=== PATIENT | male | born 1980 | race Caucasian/White ===

== ENCOUNTER 2020-04-25 11:28 | Emergency (ER) | payer BC, SELFPAY ==
[2020-04-25 11:29] VITALS: BP 146/86; PULSE 56; RESP 16; TEMP 36.6; O2SAT 99; BMI 30.5
--- NOTE | 2020-04-25 11:53 | ED.VIS.GEN ---
History of Present Illness Informant: Patient Onset: Days - 3 days Context: Gradual Onset Timing: Continuous Quality: redness/swelling Location: right eyelid Current Severity: Moderate Maximum Severity: Moderate Worsened by: nothing Relieved by: nothing Associated Symptoms: denies Narrative: 39-year-old male who denies any significant past medical history presents to the emergency department with swelling and redness above his right eye. 2 days ago the patient states he had a small pimple just underneath his eyebrow on the right side. He cleansed a small needle with peroxide and popped it and he states he did express purulence and blood. He states it initially improved but when he woke up this morning he had increased redness and swelling over his right upper eyelid and around his right eyebrow. He is not having any pain in his eye redness or drainage or any difficulties with his vision. He has not had a fever. He denies any other review of systems. Prior similar symptoms: No Recent Illness/Hospitalization: No <Glen Crowe - Last Filed: 04/25/20 11:53> <Eliceo Yañez - Last Filed: 04/25/20 12:41> Chief Complaint: Cellulitis Past Medical History Prior records reviewed: Yes Past Medical History: None Surgical History: no surgical history Lives: With Family Smoking Status: Former smoker Alcohol: Occasional Drugs: None <Glen Crowe - Last Filed: 04/25/20 11:53> <Eliceo Yañez - Last Filed: 04/25/20 12:41> - Allergies and Home Meds Allergies/Adverse Reactions: Allergies No Known Allergies Allergy (Verified 04/25/20 11:29) Primary Care Physician: Luis Pantoja MD [STAFF PHYSICIAN] - 2 Days for wound check Review of Systems All systems negative except as indicated General: Denies: Chills, Fever, Malaise Eyes: Denies: Visual changes - bilaterally, Blurred Vision - bilaterally, Diplopia ENT: Denies: Rhinorrhea, Sore throat Cardiovascular: Denies: Chest pain, Palpitations, Heart racing Respiratory: Denies: Dyspnea, Cough, Sputum Gastrointestinal: Denies: Abdominal pain, Nausea, Vomiting, Diarrhea Genitourinary: Denies: Dysuria, Hematuria, Frequency Musculoskeletal: Denies: Myalgias, Arthralgias, Neck pain, Back pain Skin: Reports: Abscess. Denies: Rash, Abrasions, Wounds Neurological: Denies: Headache, Weakness, Parasthesia, Numbness Allergy: Denies: Uticaria, Swelling of the mouth, Swelling of the tongue <Glen Crowe - Last Filed: 04/25/20 11:53> Physical Exam Vital Signs/Narrative: Vital Signs Temp Pulse Resp BP Pulse Ox 04/25/20 11:29 97.8 F 56 L 16 146/86 H 99 Inital Vital Signs reviewed: Yes General: Well nourished, Well developed, No Acute Distress Head: Normocephalic, Atraumatic Eyes: Perrl, EOMI, - - Patient has a dried hair follicle just underneath his right eyebrow. There is some very mild surrounding redness and some minimal swelling around his right eyebrow and his right upper eyelid. He has no conjunctival injection or drainage or abnormalities of his conjunctivo-. He does not have any swelling that extends to his forehead or anywhere else noted on his face. ENT: Moist mucous membranes, TM's clear. Negative for: Nasal congestion Neck: Supple, Nontender, No lymphadenopathy, No JVD Cardiovascular: Regular rate, Regular rhythm, No murmurs Respiratory: No distress, CTA bilaterally, Chest nontender Abdomen: Soft, Nontender, Nondistended, Normal bowel sounds, No masses <Glen Crowe - Last Filed: 04/25/20 11:53> Vital Signs/Narrative: Vital Signs Temp Pulse Resp BP Pulse Ox 04/25/20 12:15 16 04/25/20 11:29 97.8 F 56 L 16 146/86 H 99 <Eliceo Yañez - Last Filed: 04/25/20 12:41> Diagnostic/Tx/Re-eval - Medical Decision Making Patient has cellulitis over his right upper eyelid and around his right eyebrow. At this time there is no focal abscess. He has already drained the wound at home 2 days ago. He has no signs or symptoms that the infection is spread into his eye. Advised patient to continue warm compresses and we will prescribe him Bactrim. He was advised to return for worsening symptoms which we discussed. He will continue supportive care at home. He was advised to follow-up in the next 2 to 3 days with his doctor for a repeat wound check. <Glen Crowe - Last Filed: 04/25/20 11:53> - Medical Decision Making Seen and evaluated independently and in conjunction with physician lead recreation assistant. Agree with notes above unless documented otherwise. Agree with no fluctuance or abscess, will place patient on antibiotics and advised to return if he develops an abscess prior to the antibiotics helping it. <Eliceo Yañez - Last Filed: 04/25/20 12:41> ED Disposition <Glen Crowe - Last Filed: 04/25/20 11:53> <Eliceo Yañez - Last Filed: 04/25/20 12:41> - Plan for ED Patient: Disposition: Home or Assisted Living Diagnosis: Cellulitis of right upper eyelid Instructions: Cellulitis Prescriptions: Smz/Tmp Ds [Bactrim Ds] 1 tab PO BID #14 tab Prescription Printed Referrals: Luis Pantoja MD [STAFF PHYSICIAN] - 2 Days for wound check
[2020-04-25 12:15] VITALS: RESP 16
--- NOTE | 2020-04-25 12:16 | ED.RN ---
REVIEWED D/C INSTRUCTIONS, FOLLOW UP CARE, PRESCRIPTION, AND S/S THAT WOULD WARRANT A RETURN TO THE ED WITH PT. PT VERBALIZED AN UNDERSTANDING AND DENIES FURTHER QUESTIONS FOR THIS RN. PT SKIN P/W/D, RESP EVEN AND UNLABORED, PT A&O X 3, NO DISTRESS NOTED. PT AMBULATED OUT OF ED, GAIT STEADY.
== END 2020-04-25 12:17 | disposition home or self-care (01) ==
LOC: ED 12:12
PROVIDERS: Emergency Provider Physician Assistant Medical
DX: H00.031 Abscess of right upper eyelid (principal); Z87.891 Personal history of nicotine dependence
CPT/HCPCS: 99282

== ENCOUNTER → 2021-01-11 | Outpatient (CLI) | payer BC, SELFPAY ==
[2021-01-11 07:18] VITALS: BMI 28.6
--- NOTE | 2021-01-11 07:30 | ASPS_PTH ---
PATIENT: JORI HIGGINBOTHAM LOC: [facility] U#:[id number] AGE/SX: 40/M ROOM: RE01/11/[address]: Dr. Max Marx MD : 1980 BED: DIS: 01/11/2021 SPEC #: [id number] RECD: 01/11/21 08:41 STATUS: SRAVANTHI MOHSEN #: [id number] KEVIN: 01/11/21 07:[address]: Max Marx DEPT: CYTOLOGY RECD BY: Carmen Caro ENTERED: 01/11/21 10:22 SP TYPE: ASPIRATION OTHR DR: No Primary Care Phys Tissues: A - Thyroid gland, NOS B - Thyroid gland, NOS Procedures: Special Stain Group II Cytology Other HEADER OPERATION: Left thyroid FNA x2 PRE-OP DIAGNOSIS: Multiple thyroid nodules TISSUE SUBMITTED: A - Left inferior thyroid slides x6, B - Left mid thyroid slides x8 DIAGNOSIS CYTOLOGY A. Fine needle aspiration, left inferior thyroid nodule (smears): Adequate for evaluation. Negative, consistent with benign follicular nodule. Chronic inflammation. B. Fine needle aspiration, left mid thyroid nodule (smears): Adequate for evaluation. Negative, consistent with benign follicular nodule. AM:panda 01/12/2021 CYTOLOGY STUDY Slides are reviewed. CYTOLOGY GROSS A - Received are six smears labeled with the patient's name and designated per the requisition as left inferior thyroid. Submitted for staining. B - Received are eight smears labeled with the patient's name and designated per the requisition as left mid thyroid. Submitted for staining. / panda 01/11/21 TC:5 CPT: 14702 x2
== END | disposition home or self-care (01) ==
LOC: LABSPEC 08:47
PROVIDERS: Referring Provider Surgery; Visit Provider Surgery
DX: E04.2 Nontoxic multinodular goiter (principal)
CPT/HCPCS: 88161; 88313

== ENCOUNTER 2021-12-29 09:41 | Outpatient (CLI) | payer BC, SELFPAY ==
--- NOTE | 2021-12-29 09:46 | US_ITS ---
STUDY: THYROID ULTRASOUND REASON FOR EXAM: Male, 41 years old. Multinodular goiter. TECHNIQUE: Ultrasound evaluation of the thyroid was performed with real-time and static vo-scale imaging. COMPARISON: None. FINDINGS: RIGHT LOBE: The right lobe of the thyroid gland is enlarged and measures 6.7 cm x 2.6 cm x 1.6 cm. There is a heterogeneous echotexture. Multiple small cystic nodules are seen. The largest measures 4 mm x 4 mm x 2 mm. This is in the lower portion of the lobe. LEFT LOBE: The left lobe of the thyroid gland is enlarged and measures 6.6 cm x 2.7 cm x 1.9 cm. There is a heterogeneous echotexture. There is a dominant 2.2 cm x 1.5 cm x 1.3 cm complex nodule in the lower pole with increased vascularity. A similar appearing nodular density measuring 1.7 cm by 1.6 cm x 1.4 cm seen in the midpole. TIRADS 4 Biopsy is recommended for further evaluation. ISTHMUS: The isthmus measures 3.5 mm. The regional lymph nodes are normal. US/Thyroid IMPRESSION: Heterogeneous enlargement of both lobes of the thyroid gland as described. There are 2 dominant complex masses in the left lobe of the thyroid gland. Biopsy recommended. Electronically Signed: Trent Shelton MD at 13:01 EST ,
== END 2021-12-29 23:59 | disposition short-term general hospital (02) ==
PROVIDERS: Referring Provider Surgery; Visit Provider Surgery
DX: E04.2 Nontoxic multinodular goiter (principal)
CPT/HCPCS: 76536

== ENCOUNTER 2022-02-09 05:54 | Day surgery (SDC) | payer BC, SELFPAY ==
[2022-02-03 10:45] LABS: Hematocrit 43.9 % (40-54); Mean Corp Hgb Conc 34.2 g/dL (32-36); Mean Corpuscular Hgb 29.8 pg (27.0-32.0); Mean Corpuscular Volume 87.3 fL (80-94); Mean Platelet Vol. 10.6 fl (6.2-12.0); Platelet Count 181 K/mm3 (150-450); RBC Distribution Width CV 12.8 % (11.6-14.6); RBC Distribution Width SD 40.6 fl (35.1-43.9); Red Blood Count 5.03 M/mm3 (4.6-6.2); White Blood Count 6.2 K/mm3 (4.4-11.0)
[2022-02-03 11:19] LABS: Anion Gap 2 (5-15); BUN 19 mg/dL (7-18); BUN/Creat Ratio 17.1 RATIO (10-20); Calcium,Total 9.3 mg/dL (8.5-10.1); Chloride 105 mmol/L (98-107); Creatinine, Serum 1.11 mg/dL (0.70-1.30); EST Glomerular Filtration Rate 78 mL/min (>60); Est Glom Filt Rate - Afr Amer 94 mL/min (>60); Glucose 121 mg/dL (74-106); Phosphorus 2.3 mg/dL (2.5-4.9); Potassium 4.1 mmol/L (3.5-5.1); Sodium Level 139 mmol/L (136-145)
[2022-02-09] VITALS (12 sets, daily range): BP systolic 124–134; BP diastolic 69–97; PULSE 48–82; RESP 14–16; TEMP 36.2–37.2; O2SAT 93–98; BMI 30.1
--- NOTE | 2022-02-09 06:03 | PCM.HP.BLA ---
History and Physical Date of Admission: 02/09/22 Intake Visit Reasons: update h&p total thyroid 02/09 Chief Complaint: Update H&P Total Thyroid 02/09 RC Optometric Assistant Required: No Is patient in pain?: No Allergies No Known Allergies Allergy (Verified 02/03/22 09:06) Medications NK 01/11/21 [History Confirmed 02/03/22] PFSH Medical History Arthritis Back pain Foot pain Loose, teeth Multinodular thyroid Multiple thyroid nodules Surgical History History of colonoscopy (~2015) History of laminectomy Family History Brother Cancer thyroid Father Hypertension Grandmother Cancer thyroid Colon cancer Social History Smoking Status: Never smoker HPI HPI HPI: JORI HIGGINBOTHAM, is a 41 M who presents to the office today for an update history and physical for an upcoming elective total thyroidectomy. Patient denies any recent hospitalizations or illnesses. Patient denies cardiac and pulmonary diseases. He denies side effects or complications with anesthesia. He is not currently on any blood thinners. Patient's previous history per Dr. Marx: JORI HIGGINBOTHAM, is a 41 M who presents to the office today for surgical follow-up of thyroid disease. Please had a chance to meet this gentleman on January 11, 2021. He had multiple thyroid nodules so we performed a ultrasound-guided fine needle aspiration of a left mid and left inferior thyroid nodule. Pathology demonstrated benign follicular nodule for each of them. An updated thyroid ultrasound was obtained on December 29, 2021 as noted below. The right lobe is enlarged at 6.7 x 2.6 x 1.6 cm with the largest cystic nodule of many being 4 x 4 x 2 mm. The left lobe measures 6.6 x 2.7 x 1.9 cm. In the lower pole on the left there is a 2.2 x 1.5 x 1.3 cm complex nodule. In the midpole there is a 1.7 x 1.6 x 1.4 cm nodule. TI-RADS category 4 biopsy recommended. It is of note as just commented upon above it is exactly these nodules that were biopsied a year ago. Previously [facility] ultrasound of January 07, 2021 demonstrated the left lower pole nodule to be 1.9 x 1.4 x 1.4 cm and the left midpole nodule to be 2 x 1.7 x 1.3 cm. As noted above both of these nodules are currently measuring slightly smaller. It is of note that the patient presents today complaining of new symptoms. Is complaining that he is having some intermittent difficulty swallowing. That he can palpate the left-sided nodules more. He claims that the thyroid is somewhat tender. There is obviously ongoing concern as family history reveals a brother with thyroid cancer a maternal grandmother with thyroid cancer and an aunt with thyroid cancer. He has not experienced Covid-19 yet. He has not been vaccinated. He does do roadwork construction work. Currently there is a little in his activity. December 29, 2021 STUDY: THYROID ULTRASOUND REASON FOR EXAM: Male, 41 years old. Multinodular goiter. TECHNIQUE: Ultrasound evaluation of the thyroid was performed with real-time and static vo-scale imaging. COMPARISON: None. FINDINGS: RIGHT LOBE: The right lobe of the thyroid gland is enlarged and measures 6.7 cm x 2.6 cm x 1.6 cm. There is a heterogeneous echotexture. Multiple small cystic nodules are seen. The largest measures 4 mm x 4 mm x 2 mm. This is in the lower portion of the lobe. LEFT LOBE: The left lobe of the thyroid gland is enlarged and measures 6.6 cm x 2.7 cm x 1.9 cm. There is a heterogeneous echotexture. There is a dominant 2.2 cm x 1.5 cm x 1.3 cm complex nodule in the lower pole with increased vascularity. A similar appearing nodular density measuring 1.7 cm by 1.6 cm x 1.4 cm seen in the midpole. TIRADS 4 Biopsy is recommended for further evaluation. ISTHMUS: The isthmus measures 3.5 mm. The regional lymph nodes are normal. US/Thyroid IMPRESSION: Heterogeneous enlargement of both lobes of the thyroid gland as described. There are 2 dominant complex masses in the left lobe of the thyroid gland. Biopsy recommended. Electronically Signed: Trent Shelton MD at 13:01 EST , I have been his outside laboratory. Documented January 10, 2022 I have laboratory from November 08, 2021 performed at [facility]. White blood cell count 6.4 with a hemoglobin of 16.2 and hematocrit of 1247.6 platelet count of 155,000. Glucose 119. BUN 18. Creatinine 1.03. Albumin 4.7. Liver function tests normal. Cholesterol 213. Triglyceride 185. LDL 137. HDL 39. Both low. TSH 1.29. Free T4 1.17. T3 free 4.43. Vitamin 25 OH vitamin D 27 which is low Thyroid function tests normal ROS General General: Yes weight change and fatigue; No appetite, colon cancer, breast cancer or weakness Additional Details: 20lbs in a couple months per pt HEENT HEENT: Yes difficulty swallowing and swollen glands; No eye injury, eye surgery or hoarseness Endo Endocrine: Yes thyroid disease; No diabetes mellitus, thyroid cancer, Hair loss, heat intolerance or cold intolerance Skin Skin: No rash or changing moles Musc Musculoskeletal: Yes back problems and arthritis; No rheumatoid arthritis, gout or joint pain Cardio Cardiovascular: No murmur, pacemaker, heart disease, atrial fibrillation, high blood pressure, heart attack, heart stent, palpitations, shortness of breat with exertion or chest pain Psych Psychiatric: No depression, anxiety or hearing voices Resp Respiratory: Yes shortness of breath, No sleep apnea, No cough, No COPD, No asthma, No emphysema and No wheezing Gastro Gastrointestinal: No abdominal pain, No nausea or vomiting, Yes diarrhea, No constipation, No blood in stool, Yes acid reflux, No hemorrhoids, No ulcers, No gallbladder problem and No black,tarry stools Giovanni Hematologic: No blood thinners, No blood disorders, No bleeding, No anemia and No blood clots Neuro Neurologic: No system reviewed and no additional complaints, except as documented, No as per HPI, No abnormal gait, No abnormal hearing, No abnormal movements, No abnormal speech, No behavioral changes, No burning sensations, No confusion, No convulsions, No disequilibrium, No dizziness, No localized weakness, No frequent falls, No headache(s), No lack of coordination, No loss of vision, No memory loss, No numbness, No other visual disturbances, No radicular pain, No restless legs, No sensory deficit, No syncope, Yes tingling (Left foot following back surgery), No tremor(s), No weakness and No other Exam Const General: cooperative, healthy appearing, comfortable and no acute distress [facility] Head: normal to inspection Eyes General: appearance normal, both eyes and all related structures Neck Neck: normal visual inspection Neck mass: No Resp Effort & Inspection: normal respiratory effort Auscultation: clear to auscultation bilaterally Cardio Rate: regular rate Rhythm: regular rhythm GI Inspection: normal to inspection Palpation: soft Auscultation: normal bowel sounds Musc Cervical Spine: normal cervical lordosis Skin General: no rashes or lesions noted Neuro General: no focal motor deficits and CN's II-XI intact bilaterally Extrem General: normal to inspection Psych Appearance: grossly normal Affect: normal affect Assessment and Plan Assessment and Plan (1) Multinodular thyroid: Status: Acute Plan - Paris FAY PA-C: Dr. Marx will plan to perform a total thyroidectomy. Procedure details, risks and benefits have been reviewed. Patient has had the opportunity to ask and have questions answered. Patient verbally understands and agrees with the plan. Coding Level of Care Code No Charge Diagnoses Multinodular thyroid E04.2 Comment Update H&P 02/03/22 0660<Electronically signed by Paris FAY PA-C> I have re-examined the patient. There are no clinical changes since date of exam. Max Marx M.D., F.A.C.S. The patient is very much aware of the technique benefit risk complications and alternatives to this procedure. He is claiming that his thyroid is symptomatic and tender and causing swallowing problems. He is aware that he will require lifelong medication. He is scheduled and would like to proceed with definitive surgery. There clearly is ongoing concerns on his part regarding his strong family history of thyroid cancer. Max Marx M.D., F.A.C.S.
[2022-02-09] MEDS: Lactated Ringers 1,000 ML 15 ML IV ×2 (06:36→09:00)
--- NOTE | 2022-02-09 07:10 | PCM.DC ---
Documented by User: Dr. Max Marx MD 02/09/22 07:11 Discharge Instructions Diet Discharge Diet: Light diet - advance as tolerated (if you have questions about your diet instructions, please talk to you doctor.) Activity Discharge Activity: May Not Drive (for 3-5 days or while taking narcotic pain medicine.) May shower in (days): 1 Lifting Restrictions: 10 pounds Dressing / Incision Call your doctor if your incision/area has: Continuous Slow Oozing, Sudden Increased Bleeding, Increased Pain/ Swelling, Increased Redness and Foul Smelling Discharge Call your doctor if you observe: Fever of 101 or Higher Suture Line Care: Avoid Pulling/Pushing and Avoid Pinching/Bending Follow Up Care Please Follow Up With: Max Marx MD When: Call [phone] to make an appointment to be seen in about 10 days. Test Results: You may shower over your incision tomorrow , February 10, 2022. Remove any dressing that might still be in place. Discharge Plan Admission Primary Reason for Your Visit: Symptomatic multinodular goiter Attending Provider: Max Marx Primary Care Provider: Care Physician,Noris Primary Discharge Orders/Prescriptions Prescriptions: New levothyroxine 150 mcg Tablet 150 mcg PO DAILY@0600 Qty: 30 RF: 1 calcium carbonate 200 mg calcium (500 mg) Tablet,Chewable 1,000 mg PO TIDCM 14 Days Qty: 210 RF: 0 oxycodone 5 mg Tablet 5 mg PO Q6H PRN PRN (Reason: Pain Score 1-10/10) 3 Days Qty: 9 RF: 0 Continued ibuprofen 200 mg Capsule 200 mg PO Q6H PRN (Reason: Pain) RF: 0 Referrals / Follow Up: Care Physician,No Primary [Primary Care Provider] - Disposition Disposition (needs filled in before D/C Order can be placed): Home, Self Care Documented by User: Paris FAY PA-C 02/09/22 15:35 Discharge Plan Admission Primary Reason for Your Visit: Symptomatic multinodular goiter Attending Provider: Max Marx Primary Care Provider: Care Physician,No Primary Discharge Orders/Prescriptions Prescriptions: New levothyroxine 150 mcg Tablet 150 mcg PO DAILY@0600 Qty: 30 RF: 1 calcium carbonate 200 mg calcium (500 mg) Tablet,Chewable 1,000 mg PO TIDCM 14 Days Qty: 210 RF: 0 oxycodone 5 mg Tablet 5 mg PO Q6H PRN PRN (Reason: Pain Score 1-10/10) 3 Days Qty: 9 RF: 0 Continued ibuprofen 200 mg Capsule 200 mg PO Q6H PRN (Reason: Pain) RF: 0 Referrals / Follow Up: Care Physician,No Primary [Primary Care Provider] - Disposition Disposition (needs filled in before D/C Order can be placed): Home, Self Care
--- NOTE | 2022-02-09 07:30 | THYROID_PTH ---
PATIENT: JORI HIGGINBOTHAM LOC: [facility] U#:[id number] AGE/SX: 41/M ROOM: RE02/09/[address]: Dr. Max Marx MD : 1980 BED: DIS: 02/09/2022 SPEC #: [id number] RECD: 02/09/22 11:53 STATUS: SRAVANTHI CONNOLLY #: [id number] KEVIN: 02/09/22 07:[address]: Max Marx DEPT: SURGICAL PATHOLOGY RECD BY: Juancarlos Kinney ENTERED: 02/09/22 13:24 SP TYPE: THYROID OTHR DR: No Primary Care Phys Tissues: Thyroid gland, NOS Procedures: Surgery Specimen Level V HEADER OPERATION: Total thyroidectomy PRE-OP DIAGNOSIS: Multinodular thyroid TISSUE SUBMITTED: Thyroid (suture in anterior superior aspect of left lobe) MICROSCOPIC DIAGNOSIS Thyroid, total thyroidectomy: Colloid nodules with focal adenomatous change. One benign lymph node. AM:panda 02/11/2022 MICROSCOPIC DESCRIPTION Slides are reviewed. GROSS DESCRIPTION Received in fixative is one container labeled with the patient's name and designated thyroid. The specimen consists of a total thyroidectomy measuring 40 gm. The right lobe measures 5.3 x 3 x 2.2 cm. The left lobe measures 6.3 x 3 x 2.2 cm. The isthmus measures 2 x 1.5 x 0.8. The specimen is differentially inked as follows: right lobe - blue, left lobe - green, isthmus - red. The entire posterior portion of the thyroid is inked in black ink. Serial sections reveal multiple gelatinous nodules ranging in size from 0.5 to 2.3 cm. Animal Husbandry Professor sections are submitted in 11 cassettes as follows: 1-5 - right lobe, 6 - isthmus, 7-11 - left lobe. / AM:panda 02/10/2022 TC:5 CPT: 10760
[2022-02-09] MEDS: Bupivacaine Mpf 0.5% 30 ML VIAL (09:52)
--- NOTE | 2022-02-09 10:03 | OP.PCM_ITS ---
Problems Associated Problem List Diagnoses (1) Multinodular thyroid: Report of Operation Date of Procedure: 02/09/22 Pre-Operative Diagnosis: Symptomatic multinodular goiter Post-Operative Diagnosis: Same Surgery/Procedure Performed:: Total thyroidectomy Description of Surgical Findings:: Timeout informed consent was obtained. The patient was taken to the operating placed on the table underwent general tracheal intubation anesthesia shoulder roll was placed the neck was prepped with chlorhexidine. Clean procedure no antibiotics required. A transverse suprasternal incision was created sharp dissection carried down through the subtenons tissue consistent was incised with subsequent flaps were raised strap muscles were incised vertically patient had very thick well-developed strap muscles dissection performed directly down upon the thyroid the right lobe was addressed first it was noted to be enlarged carefully and tediously dissection performed initially inferiorly identifying the inferior lobe dissecting through the inferior parathyroid which was clearly visualized. Harmonic Scalpel dissection was used and hemoclips were needed additionally for hemostasis in the middle portion of the gland was partially elevated and I nancy attention of the superior part of the gland superior vessels identified secured with amount of scalpel and hemoclips. The gland was rotated anteriorly and the recurrent laryngeal nerve quickly identified. There is carefully protected as the gland was then dissected posteriorly. Dissection was formed off the ligament very which was quite tight not had to use scalpel dissection at that point. The nerve continuously on view. Plan was then dissected off the anterior surface of the trachea with harmonic scalpel at the pyramidal lobe was taken as well. The left lobe slightly larger seemingly than the right lobe slightly more tedious dissection was required on the left as the gland was rotated again the inferior pole was addressed in the superior pole that allowed rotation of the gland the recurrent nerve identified protected. The inferior parathyroid on the left again identified preserved superior parathyroid more difficult to visualize but felt that that was identified and can and protected as well. The gland was then dissected free. Suture was placed in the anterior superior aspect of the left lobe of the thyroid. It is of note that the dissection throughout was rather tedious due to the size of the gland and some fibrous adherence. [place] that technique however procedure proceeded on in a good fashion. The neck was irrigated. Inspection revealed hemostasis was intact. Recurrent nerves intact. Small piece of fibrillar was placed in each portion of the neck. Strap muscles were approximated midline with 3-0 Vicryl simple sutures. Platysma was approximately the same. Subdermal tissues were approximated with a deeper layer of interrupted 3-0 Vicryl and then a superficial layer of interrupted 5-0 Vicryl. The periincisional area is excised with 10 cc of 0.5% Marcaine. Dermabond was applied followed by Telfa and tape dressings. Sponge and instrument and needle counts were reported to the surgeon to be correct. Specimen total thyroid. Drains none. Blood loss minimal. Max Marx M.D., F.A.C.S. Surgeon: Max Marx Type of Anesthesia: General and Local Anesthesiologist: Nichole Moreno
[2022-02-09] MEDS: Calcium Carbonate 500 MG Tablet 1000 MG PO (12:07)
[2022-02-09] MEDS: Calcitriol 0.25 MCG Capsule PO (12:07)
[2022-02-09] MEDS: Acetaminophen 325 MG Tablet 650 MG PO (12:07)
[2022-02-09 14:40] LABS: Calcium,Total 9.2 mg/dL (8.5-10.1)
== END 2022-02-09 23:59 | disposition home or self-care (01) ==
LOC: SDC 05:55 → AC 05:55
PROVIDERS: Referring Provider Surgery; Visit Provider Surgery
PROC: (CPT 60240; principal; 2022-02-09 07:15)
DX: E04.2 Nontoxic multinodular goiter (principal)
CPT/HCPCS: 60240; 00320; 36415; 80048; 82310; 84100; 85027; 87426; 88307; C9803; J7120; J2405

== ENCOUNTER 2022-02-21 08:48 | Outpatient (CLI) | payer BC, SELFPAY ==
[2022-02-21 09:50] LABS: Calcium,Total 9.4 mg/dL (8.5-10.1)
== END 2022-02-21 23:59 | disposition home or self-care (01) ==
LOC: PAVLAB 08:49
PROVIDERS: Referring Provider Physician Assistant; Visit Provider Physician Assistant
DX: E04.2 Nontoxic multinodular goiter (principal)
CPT/HCPCS: 36415; 82310; 84443

== ENCOUNTER → 2022-03-22 | Outpatient (CLI) | payer BC, SELFPAY | END | disposition home or self-care (01) | LOC: PAVLAB 15:38 | PROVIDERS: PCP Internal Medicine; Referring Provider Physician Assistant; Visit Provider Physician Assistant | DX: E89.0 Postprocedural hypothyroidism (principal) | CPT/HCPCS: 36415; 84443 ==

== ENCOUNTER → 2022-04-16 | Outpatient (CLI) | payer BC, SELFPAY ==
[2022-04-16 09:17] LABS: Thyroid Stim Hormone (TSH) 9.13 uIU/mL (0.358-3.74)
== END | disposition home or self-care (01) ==
LOC: LAB 08:14
PROVIDERS: PCP Internal Medicine; Referring Provider Physician Assistant; Visit Provider Physician Assistant
DX: E04.2 Nontoxic multinodular goiter (principal)
CPT/HCPCS: 36415; 84443

== ENCOUNTER 2023-10-14 21:05 | Emergency (ER) | payer BC, SELFPAY ==
[2023-10-14 21:07] VITALS: TEMP 36.6
--- NOTE | 2023-10-14 21:20 | ED.VIS.LOWEX ---
HPI History of Present Illness HPI Narrative: Patient presents with right knee pain that began today. Patient states he had a recent right knee arthroscopy and meniscus surgery. Patient denies any fevers or chills. Patient states there was swelling over his patella that was worse earlier today. Patient describes his pain as sharp. Patient states nothing makes it worse and nothing makes it better. Patient denies any paresthesias or weakness. Patient denies any trauma or injury. Chief Complaint: Lower Extremity Injury Onset/Context/Timing Onset: Today Timing: Continuous Quality of Pain: Sharp Location: Right knee Worsened by: Nothing Relieved by: Nothing Associated Symptoms Associated Symptoms: Negative for Parasthesia, Weakness or Loss of Funtion PFSH PFSH Medical History Arthritis Back pain Foot pain Hypothyroidism Loose, teeth Multinodular thyroid Multiple thyroid nodules Neck pain Home Medications ibuprofen 200 mg capsule 200 mg PO Q6H PRN Pain 02/09/22 [History Last Taken 02/08/22] ibuprofen 800 mg tablet 800 mg PO Q6H PRN pain, mild 10/14/23 [History Last Taken Unknown] levothyroxine 200 mcg capsule 225 mcg PO DAILY 10/14/23 [History Last Taken Unknown] Allergy/AdvReac Type Severity Reaction Status Date / Time adhesive tape AdvReac Mild Rash Verified 10/14/23 21:10 Family History Brother Cancer thyroid Father Hypertension Grandmother Cancer thyroid Colon cancer Surgical History History of colonoscopy (~2015) History of laminectomy History of total thyroidectomy S/P knee surgery S/P total thyroidectomy Social History household members: significant other Smoking Status: Never smoker ROS ROS ED Constitutional Constitutional ED: Denies chills or fever(s) Eyes Eyes: Denies blurry vision or change in vision ENT ENT ED: Denies rhinorrhea or sore throat Cardiovascular Cardiovascular: Denies chest pain or palpitations Respiratory/Chest Respiratory/Chest: Denies cough or dyspnea Gastrointestinal Gastrointestinal: Reports nausea; Denies vomiting Genitourinary Genitourinary ED: Denies dysuria or hematuria Musculoskeletal Musculoskeletal: Reports back pain; Denies neck pain Integumentary Denies abscess or rash Neurologic Neurologic: Reports headache(s); Denies weakness Allergic/Immunologic Allergic/Immunologic ED: Denies mouth swelling or urticaria EXAM Physical Exam Const Vital Signs: 10/14/23 21:07 Temperature 98 F Temperature Source Temporal Positive well nourished and well developed General Appearance ED: well developed and NAD HEENT Reports moist mucous membranes Neck full ROM and supple Extremity Extremity Narrative: There is mild tenderness over the right knee. Incisions are healing well. There is no erythema or discharge noted. There is no joint effusion noted. There is no deformity noted. There is no pain with short arc range of motion. Range of motion was somewhat limited in complete flexion and extension secondary to pain. There is no calf tenderness noted. Pedal pulses are equal bilaterally. Sensation was intact to light touch bilaterally. Strength is 5/5 bilaterally. Neuro oriented x3, CN's II-XII intact bilaterally, moves all extremities and no sensory deficits noted Sensorium / Orientation: alert Motor Exam: strength 5/5 throughout Psych mental status grossly normal MDM MDM MDM Narrative Medical decision making narrative: Differential diagnosis includes postoperative swelling, fracture, and sprain. X-rays of the right knee will be obtained to assess for occult fracture. Radiography Diagnostic Testing: X-rays of the right knee were obtained. There are 4 views. On my independent interpretation, there is no acute fracture or dislocation noted. There is a mild effusion noted. Radiologist also interpreted the x-rays and agrees. Treatment and Re-Evaluation Narrative: Patient was advised of his findings. Case was discussed with Dr. Avery who is covering for Dr. Sapp. He recommended having patient follow-up with Dr. Sapp in the office this week. He did not recommend any antibiotics. Patient was instructed to ice and elevate the right knee. Patient was instructed to follow-up in 3 to 5 days. Patient understood and was agreeable with the plan. All questions were answered. Discharge Plan Triage Chief Complaint: Lower Extremity Injury ED Provider: Bill Pollock Dx/Rx/DC Orders Clinical Impression: Postoperative edema, Postoperative pain of right knee, Status post arthroscopic surgery of right knee Instructions: ED Knee Effusion Prescriptions: No Action ibuprofen 200 mg Capsule 200 mg PO Q6H PRN (Reason: Pain) ibuprofen 800 mg tablet 800 mg PO Q6H PRN (Reason: pain, mild) Patient Comments: TAKE 1 TABLET BY MOUTH EVERY 6 TO 8 HOURS NEEDED levothyroxine 200 mcg capsule 225 mcg PO DAILY Primary Care Provider: JUANI ALBA Referrals: Mendel Sapp DO [Med Staff - Active Staff] - 3-5 Days JUANI ALBA MD [Primary Care Provider] - Disposition Disposition: Home, Self Care
--- NOTE | 2023-10-14 21:50 | RAD_ITS ---
STUDY: X-RAY - RIGHT KNEE REASON FOR EXAM: Male, 43 years old. ARTHROSCOPIC KNEE SURGERY ON 10-10-2023. SWELLING AND PAIN NEAR SURGICAL SITE. TECHNIQUE: 4 view(s) of the knee. COMPARISON: None. FINDINGS: Normal visualized distal femur. Normal visualized proximal tibia and fibula. Normal proximal tibiofibular articulation. Normal medial femorotibial compartment. Normal lateral femorotibial compartment. Normal patellofemoral articulation. There is no demonstrated joint effusion. Soft tissue swelling of the anterior knee. RAD/Knee 4 or More Views IMPRESSION: Prepatellar soft tissue swelling. No fracture demonstrated. Electronically Signed: Jeyson Abernathy MD ([place]) at 22:09 EST Reading Location ID and State: [facility] / [place] , Service support ,
[2023-10-14 22:00] VITALS: BP 136/90; PULSE 64; RESP 14; TEMP 36.4; O2SAT 95
== END 2023-10-14 23:19 | disposition home or self-care (01) ==
PROVIDERS: Emergency Provider Emergency Medicine; PCP Internal Medicine; Visit Provider Emergency Medicine
DX: M25.561 Pain in right knee (principal); R60.9 Edema, unspecified; Z98.890 Other specified postprocedural states; E03.9 Hypothyroidism, unspecified; Z79.899 Other long term (current) drug therapy
CPT/HCPCS: 73564; 99282

== ENCOUNTER 2023-12-06 16:40 | Emergency (ER) | payer BC, SELFPAY ==
[2023-12-06 16:41] VITALS: BP 141/97; PULSE 66; RESP 14; TEMP 36.3; O2SAT 99; BMI 31.6
--- NOTE | 2023-12-06 16:44 | EKG12_ITS ---
Test Reason : CP Blood Pressure : / mmHG Vent. Rate : 063 BPM Atrial Rate : 063 BPM P-R Int : 156 ms QRS Dur : 096 ms QT Int : 390 ms P-R-T Axes : 050 072 012 degrees QTc Int : 399 ms Normal sinus rhythm Normal ECG Confirmed by JANAY JESUS, CHON ([id number]), content editor VIKI MIRANDA ([id number]) on 12/08/2023 7:13:17 AM Referred By: KIMBERLEE/WENDY Confirmed By:CHON GUSTAFSON MD
--- NOTE | 2023-12-06 16:47 | NURSING ---
NO OLD EKGS
--- NOTE | 2023-12-06 17:00 | RAD_ITS ---
STUDY: X-RAY CHEST REASON FOR EXAM: Male, 43 years old. chest pain TECHNIQUE: Single AP portable view of the chest. COMPARISON: None. FINDINGS: The lungs are clear and expanded. There is no demonstrated pleural abnormality. Normal size heart. Normal mediastinum and funmilayo. Normal visualized pulmonary arteries. Normal visualized aortic arch and descending thoracic aorta. Normal visualized thoracic spine. Normal visualized ribs, clavicles, and shoulders. There is no demonstrated abnormality of the visualized soft tissue structures of the upper abdomen. RAD/Chest 1 View (Portable) IMPRESSION: Normal x-ray examination of the chest. Electronically Signed: Isha Hawthorne MD at 17:11 [facility] ,
[2023-12-06 17:03] LABS: Absolute Lymphocyte Count 2.14 X10^3/uL (0.83-4.51); Absolute Neutrophil Count 5.3 X10^3/uL (2.0-7.7); Basophil# 0.06 X10^3/uL; Basophil% 0.7 % (0-1); Eosinophil# 0.17 X10^3/uL; Eosinophils% 1.9 % (0-5); Hematocrit 45.4 % (40-54); Hemoglobin 15.2 g/dL (13.0-16.5); Lymphocyte # 2.14 X10^3/ul (0.83-4.51); Lymphocyte % 24.3 % (19-41); Mean Corp Hgb Conc 33.5 g/dL (32-36); Mean Corpuscular Hgb 29.7 pg (27.0-32.0); Mean Corpuscular Volume 88.8 fL (80-94); Mean Platelet Vol. 10.5 fl (6.2-12.0); Monocyte# 1.05 X10^3/uL; Monocyte% 11.9 % (0-10); NRBC Flagged by Analyzer 0 % (0-5); Neutrophil # 5.32 X10^3/uL (2.7-7.7); Neutrophil % 60.6 % (47-70); Platelet Count 176 K/mm3 (150-450); RBC Distribution Width SD 45.1 fl (35.1-43.9); Red Blood Count 5.11 M/mm3 (4.6-6.2); White Blood Count 8.8 K/mm3 (4.4-11.0)
[2023-12-06 17:21] LABS: Anion Gap 4 (5-15); BUN 20 mg/dL (7-18); BUN/Creat Ratio 14.9 RATIO (10-20); Calcium,Total 9.4 mg/dL (8.5-10.1); Chloride 108 mmol/L (98-107); Creatinine, Serum 1.34 mg/dL (0.70-1.30); EST Glomerular Filtration Rate 62 mL/min (>60); Est Glom Filt Rate - Afr Amer 75 mL/min (>60); Estimated Creatinine Clearance 86.85 ml/min; Glucose 99 mg/dL (74-106); Potassium 4.3 mmol/L (3.5-5.1); Sodium Level 139 mmol/L (136-145); Troponin-I HS (w/2H Reflex) 4 pg/mL (3.0-78.0)
--- NOTE | 2023-12-06 18:32 | ED.VIS.CHEST ---
HPI History of Present Illness Chief Complaint: Chest Pain Informant: patient Onset/Context/Timing Onset: Yesterday Activity at onset: gradual Timing: Continuous Quality: Positive for Sharp and - (Twisting) Location: Substernal Worsened By: Exertion Relieved By: Nothing Associated Symptoms: Positive for Dyspnea, Lightheadedness and Palpitations; Negative for Nausea, Vomiting, Diaphoresis, Cough, Fever or Acid Reflux Narrative Narrative: Patient presents with chest pain that began yesterday. Patient states it came on gradually. Patient states it has been constant. Patient describes it as a twisting sensation and sharp at times. Patient states it is over the substernal area. Patient states it is worse with exertion. Patient admits to some shortness of breath with this. Patient also admits to some lightheadedness and palpitations. Patient states he had a recent right knee surgery. Patient is concerned over possible blood clot. [facility] Medical History Arthritis Back pain Foot pain Hypothyroidism Loose, teeth Multinodular thyroid Multiple thyroid nodules Neck pain Home Medications ibuprofen 200 mg capsule 200 mg PO Q6H PRN Pain 02/09/22 [History Last Taken 02/08/22] ibuprofen 800 mg tablet 800 mg PO Q6H PRN pain, mild 10/14/23 [History Last Taken Unknown] levothyroxine 200 mcg capsule 225 mcg PO DAILY 10/14/23 [History Last Taken Unknown] Allergy/AdvReac Type Severity Reaction Status Date / Time adhesive tape AdvReac Mild Rash Verified 12/06/23 16:41 Family History Brother Cancer thyroid Father Hypertension Grandmother Cancer thyroid Colon cancer Surgical History History of colonoscopy (~2015) History of laminectomy History of total thyroidectomy S/P knee surgery S/P total thyroidectomy Social History household members: significant other Smoking Status: Never smoker ROS ROS ED Constitutional Constitutional ED: Denies chills or fever(s) Eyes Eyes: Reports blurry vision; Denies diplopia ENT ENT ED: Denies rhinorrhea or sore throat Cardiovascular Cardiovascular: Reports chest pain and palpitations Respiratory/Chest Respiratory/Chest: Reports dyspnea; Denies cough Gastrointestinal Gastrointestinal: Denies nausea or vomiting Genitourinary Genitourinary ED: Reports urinary frequency; Denies dysuria or hematuria Musculoskeletal Musculoskeletal: Denies back pain or neck pain Integumentary Denies abscess or rash Neurologic Neurologic: Reports headache(s); Denies weakness Allergic/Immunologic Allergic/Immunologic ED: Denies mouth swelling or urticaria EXAM Physical Exam Const Vital Signs: 12/06/23 16:41 12/06/23 18:52 12/06/23 18:52 Temperature 97.3 F L Temperature Source Temporal Pulse Rate 66 66 Respiratory Rate 14 16 Blood Pressure 141/97 H 143/96 H Blood Pressure Mean 111 111 Pulse Ox 99 Oxygen Delivery Method Room Air Room Air 12/06/23 20:27 Temperature Temperature Source Pulse Rate 60 Respiratory Rate 18 Blood Pressure 139/83 H Blood Pressure Mean 101 Pulse Ox 100 Oxygen Delivery Method Positive well nourished and well developed General Appearance ED: well developed and NAD HEENT Reports moist mucous membranes Chest Wall Chest: tenderness sternum and costochondral junction Resp normal respiratory effort and clear to auscultation bilaterally Cardio regular rate and regular rhythm GI soft to palpation, non-tender and non-distended Extremity normal to inspection General Extremety ED: Negative for edema or tenderness General Extremity: Negative for edema Psych mental status grossly normal Heart Score History: Slightly/Non-Suspicious ECG: Normal Age: </= 45 years Risk Factors: No Risk Factors Troponin: </= Normal Limit Score: 0 MDM MDM MDM Narrative Medical decision making narrative: Differential diagnosis includes cardiac dysrhythmia, cardiac ischemia, pulmonary embolism, pneumonia, pneumothorax, and musculoskeletal pain. EKG will be obtained to assess for cardiac dysrhythmia and cardiac ischemia. Chest x-ray will be obtained to assess for pneumonia and pneumothorax. CBC will be obtained to assess for leukocytosis and anemia. Basic metabolic profile will be obtained to assess for electrolyte abnormality and renal function. High-sensitivity troponin will be obtained to assess for cardiac ischemia. 2-hour repeat high-sensitivity troponin will be obtained to assess for ongoing cardiac ischemia. D-dimer will be obtained to assess for pulmonary embolism and DVT. Lab Data Attestation: I reviewed the patient's lab results. Lab results narrative: CBC was reviewed and was within normal limits. Basic metabolic profile was reviewed and was essentially within normal limits. It was slightly elevated at 1.34. Initial high-sensitivity troponin was reviewed and was normal at 4. D-dimer was reviewed and was normal at 0.28. 2-hour repeat high-sensitivity troponin was reviewed and was normal at 4. Labs: Laboratory Results - last 24 hr 12/06/23 12/06/23 16:50 19:00 WBC 8.8 RBC 5.11 Hgb 15.2 Hct 45.4 MCV 88.8 MCH 29.7 MCHC 33.5 RDW Std Deviation 45.1 H RDW Coeff of Fritz 14.0 Plt Count 176 MPV 10.5 Immature Gran % (Auto) 0.600 Neut % (Auto) 60.6 Lymph % (Auto) 24.3 [place] % (Auto) 11.9 H Eos % (Auto) 1.9 Baso % (Auto) 0.7 Absolute Neuts (auto) 5.3 Absolute Lymphs (auto) 2.14 Nucleated RBC % 0 D-Dimer Quant (PE/DVT) 0.28 Sodium 139 Potassium 4.3 Chloride 108 H Carbon Dioxide 27.0 Anion Gap 4 L BUN 20 H Creatinine 1.34 H Estim Creat Clear Calc 86.85 Est GFR (MDRD) Af Amer 75 Est GFR (MDRD) Non-Af 62 BUN/Creatinine Ratio 14.9 Glucose 99 Calcium 9.4 Troponin I High Sens 4 4 Radiography Chest X-Ray - ED: 1 View, Read by ED Physician, Read by Radiologist and No Acute Disease Diagnostic Testing: Clinical Impression(s) from Imaging Studies Chest X-Ray 12/06/23 17:00 IMPRESSION: Normal x-ray examination of the chest. Electronically Signed: Isha Hawthorne MD at 17:11 EST , Portable 1 view chest x-ray was obtained. On my independent interpretation, lung monte are clear. There is normal cardiac silhouette. Bony thorax is normal. There is no acute process noted. Radiologist also interpreted the x-ray and agrees. EKG Initial EKG: Attestation: I personally reviewed and interpreted this EKG as follows: Interpretation: Sinus Rhythm (63) and No Acute Injury Pattern Comments: EKG was obtained. On my independent interpretation, it showed a normal sinus rhythm with a rate of 63. CT interval, QRS interval, and QTc intervals were all normal. [place] was normal. There are no acute ST or T wave changes. Prior EKG tracings: not available for review Prior: No Prior Treatment and Re-Evaluation :: Patient was given IV fluids. Patient was advised of his findings. Patient has a HEART score of 0. Patient was advised that this is low risk for acute cardiac event. Patient was instructed to follow-up with his primary care physician in 5 to 7 days for further evaluation. Patient understood and was agreeable with the plan. All questions were answered. Discharge Plan Triage Chief Complaint: Chest Pain ED Provider: Bill Pollock Dx/Rx/DC Orders Clinical Impression: Chest pain, S/P total thyroidectomy Instructions: ED Chest Pain, Uncertain Cause Prescriptions: No Action ibuprofen 200 mg Capsule 200 mg PO Q6H PRN (Reason: Pain) ibuprofen 800 mg tablet 800 mg PO Q6H PRN (Reason: pain, mild) Patient Comments: TAKE 1 TABLET BY MOUTH EVERY 6 TO 8 HOURS NEEDED levothyroxine 200 mcg capsule 225 mcg PO DAILY Primary Care Provider: JUANI ALBA Referrals: JUANI ALBA MD [Primary Care Provider] - 5-7 Days Disposition Disposition: Home, Self Care Discharge Date/Time: 12/06/23 20:30
[2023-12-06 18:52] VITALS: BP 143/96; PULSE 66; RESP 16
[2023-12-06 18:54] LABS: D-Dimer Quantitative (DVT/PE) 0.28 FEU/ug/m (0.27-0.49)
[2023-12-06 19:00] LABS: Reflex Troponin-HS? (from REC) Y
[2023-12-06] MEDS: 0.9% Normal Saline (1000mL) 1,000 ML 1000 ML IV (19:07)
--- OUTSIDE RECORDS SUMMARY | 2023-12-06 19:09 | XMS RPT_ITS | CCD ---
Author Name Unknown Address [id number] [place] [address] Organization [facility] Care Team Providers Care [employer] Supervisor Name Role Phone ABHINAV HERNANDEZ Unavailable Unavailable NONE, DOCTOR Unavailable Unavailable ED, Doctor Unavailable Unavailable ED, Doctor Unavailable Unavailable Lupe Johnson Unavailable Unavailable Candi Rodriguez MD Primary Care Provider Candi Rodriguez MD Primary Care Provider SYSTEM, PROVIDER NOT IN Primary Care Unavaila VIDA Irizarry Attending Unavailable PRANAV BUI Referring Unavailable PRANAV BUI Attending Unavailable CANDI RODRIGUEZ MD Primary Care Physician CANDI RODRIGUEZ MD Primary Care Unavailable GIA JESUS, DR MART Maneul Attending Unavailab Candi Cisneros MD Primary Care Provider PROVIDER, UNKNOWN Primary Care Unavailable PROVIDER, UNKNOWN Primary Care Unavailable CANDI RODRIGUEZ Primary Care Unavailable Allergies Allergy Classification Reported Allergen(s) Allergy Type Date of Onset Reaction(s) Facility (1 source) Adhesive agent Drug Allergy 09-01-2023 [facility] Medications Current Medications Medication Drug Class(es) Dates Sig (Normalized) Sig (Original) ibuprofen 200 mg oral tablet (1 source) Nonsteroidal Anti-inflammatory Drug Start: 5 take 1 dose by mouth every six hours Advil Dose : 200 mg =, Oral, q6hr, 0 Refill(s) Start Date: 08/08/15 Status: Ordered methylPREDNISolone 4 mg oral tablet (1 source) Corticosteroid Start: 3 End: 3 take 4 mg by mouth once daily methylPREDNISolone (MEDROL DOSE-PACK) 4 mg Dose-Pack Take 4 mg by mouth once daily. 0 08/30/2023 09/05/2023 Active Completed/Discontinued Medications Medication Drug Class(es) Dates Sig (Normalized) Sig (Original) fluticasone propionate 0.05 mg/actuat metered dose nasal spray (4 sources) Corticosteroid Start: 06-03-2020 take 2 spray(s) nasal route once daily fluticasone (FLONASE) 50 mcg/actuation nasal spray Indications: Nasal drainage , Cough Use 2 Sprays in each nostril once daily. 1 Bottle 0 06/03/2020 Active Problems Active Problems Problem Classification Problem Date Documented Da te Episodic/Chronic Abdominal pain (2 sources) Left upper quadrant pain; Translations: [Left upper quadrant pain] Onset: 10-11-2022 Episodic Inflammation; infection of eye (except that caused by tuberculosis or sexually transmitteddisease) (1 source) Acute conjunctivitis of left eye; Translations: [Unspecified acute conjunctivitis, left eye] Episodic Nausea and vomiting (2 sources) Nausea with vomiting, unspecified; Translations: [Nausea with vomiting, unspecified] Onset: 10-11-2022 Episodic Other endocrine disorders (1 source) Testicular hypofunction; 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 Other gastrointestinal disorders (2 sources) Diarrhea, unspecified; Translations: [Diarrhea, unspecified] Onset: 10-11-2022 Episodic Other upper respiratory infections (3 sources) Viral upper respiratory tract infection; Translations: [Acute upper respiratory infection, unspecified] Episodic Unclassified (1 source) Entire carpal canal (body structure) 08-08-2015 Viral infection (2 sources) COVID-19; Translations: [COVID-19] Onset: 10-23-2022 Past or Other Problems Problem Classification Problem Date Documented Da te Episodic/Chronic Malaise and fatigue (2 sources) Other fatigue; Translations: [Other fatigue] Onset: 10-26-2017 Episodic Other lower respiratory disease (2 sources) Cough; Translations: [Cough] Onset: 10-26-2017 Episodic Unclassified (2 sources) Other specified abnormal findings of blood chemistry; Translations: [Other specified abnormal findings of blood chemistry] Onset: 10-26-2017 Episodic Results Test Name Value Interpretation Reference Range Facil ity Vital Signs Date Time Vital Sign Value Performing Clinician Faci lity 09-01-2023 07:46-0400 Body temperature 98.6 [degF] Cleve Monahan MD Work Phone: [facility] 09-01-2023 07:46-0400 Body weight 99.61 kg Cleve Monahan MD Work Phone: [facility] 09-01-2023 07:46-0400 Diastolic blood pressure 91 mm[Hg] Cleve Monahan MD Work Phone: [facility] 09-01-2023 07:46-0400 Heart rate 65 /min Cleve Monahan MD Work Phone: [facility] 09-01-2023 07:46-0400 Respiratory rate 18 /min Cleve Monahan MD Work Phone: [facility] 09-01-2023 07:46-0400 SaO2% (BldA) [Mass fraction] 99 % Cleve Monahan MD Work Phone: [facility] 09-01-2023 07:46-0400 Systolic blood pressure 147 mm[Hg] Cleve Monahan MD Work Phone: [facility] 03-12-2022 12:20-0400 Body temperature 98.8 [degF] Cristela Nicholas HAND COREMAKER.WIRE REPAIRER Work Phone: [facility] 03-12-2022 12:20-0400 Body weight 100.56 kg Cristela Nicholas HAND COREMAKER.WIRE REPAIRER Work Phone: [facility] 03-12-2022 12:20-0400 Diastolic blood pressure 80 mm[Hg] Cristela Nicholas HAND COREMAKER.WIRE REPAIRER Work Phone: [facility] 03-12-2022 12:20-0400 Heart rate 74 /min Cristela Nicholas HAND COREMAKER.WIRE REPAIRER Work Phone: [facility] 03-12-2022 12:20-0400 Respiratory rate 12 /min Cristela Nicholas HAND COREMAKER.WIRE REPAIRER Work Phone: [facility] 03-12-2022 12:20-0400 SaO2% (BldA) [Mass fraction] 98 % Cristela Nicholas APRN.WIRE REPAIRER Work Phone: [facility] 03-12-2022 12:20-0400 Systolic blood pressure 122 mm[Hg] Cristela Nicholas APRN.CNP Work Phone: [facility] Encounters Encounter Date Encounter Type Care Provider Facility Start: 09-01-2023 End: 09-01-2023 ambulatory CANDI RODRIGUEZ Facility:[facility] Start: 09-01-2023 End: 09-01-2023 Patient encounter procedure Cleve Monahan MD Work Phone: [facility] Procedures Date Procedure Procedure Detail Performing Clinician Start: 09-01-2023 STREP A MOLECULAR (POC) Mark Benton APRN.WIRE REPAIRER Work Phone: Start: 02-14-2022 Radiologic exam ches t 2 views Candi Rodriguez MD Work Phone: Start: 02-12-2021 Follow-up visit None (qualifier value) DR JAMAICA JESUS Plan of Treatment Date Care Activity Detail Author Start: 07-28-2023 Influenza vaccination Influenza Vaccine (#1) [facility] Start: 11-27-2022 Depression Assessment Depression Assessment [facility] Start: 07-28-2022 Influenza vaccination [facility] Start: 07-28-2021 Influenza vaccination INFLUENZA (#1) [facility] Start: 2015 Lipid 1996 panel - Serum or Plasma Lipid Screening [facility] Start: 2015 LIPID SCREEN LIPID SCREEN [facility] Start: 1999 Urine microalbumin profile [facility] Start: 1998 HEPATITIS C SCREENING HEPATITIS C SCREENING [facility] Start: 1998 HIV SCREENING HIV SCREENING [facility] Start: 1992 Adult depression screening assessment DEPRESSION SCREENING [facility] Start: 1985 COVID-19 VACCINE (1) COVID-19 VACCINE (1) [facility] Start: 04-12-1981 COVID-19 VACCINE (#1) COVID-19 VACCINE (#1) [facility] Start: 1980 HEPATITIS B (1 of 3 - 3-dose series) HEPATITIS B (1 of 3 - 3-dose series) [facility] Start: 1980 Hepatitis B Vaccine (1 of 3 - 3-dose series) Hepatitis B Vaccine (1 of 3 - 3-dose series) [facility] GROUP A STREPTOCOCCU S BY PCR GROUP A STREPTOCOCCUS BY PCR Lab Today Pharyngitis, unspecified etiology Ordered: 03/12/2022 [facility] Work Phone: Payers Date Payer Category Payer Unknown [employer]E BR[employer] SS PPO [id number] 2021-Present [phone] [address] [place] [address] PPO [id number] 2021 Unknown MARILEE HORN [employer]E SS PPO [id number] 2021-Present [phone] [address] [place] [address] PPO [id number] 2021 Unknown [id number] 1980 Unknown [id number] 1980 Unknown [id number] Self-pay Social History Date Type Detail Facility Start: 02-03-2020 End: 09-01-2023 Tobacco smoking status NHIS Ex-smoker [facility] End: 02-02-1994 History of tobacco use Current smoker [facility] Start: 02-03-2020 End: 09-01-2023 Tobacco use and exposure Smokeless tobacco non-user [facility] Start: 06-01-2020 End: 09-01-2023 Alcohol intake Current non-drinker of alcohol (finding) [facility] Start: 1980 Sex Assigned At Not on file C [facility] Start: 02-04-2022 End: 08-15-2022 Exposure to SARS-CoV-2 (event) Not sure [facility] End: 02-02-1994 History of tobacco use Cigarette Smoker [facility] Tobacco smoking status Never smo ked tobacco (finding) [facility] Rosalio Sex Assigned At Sex [facility] Start: 11-01-2020 End: 09-01-2023 History of Social function [facility] Start: 11-01-2020 End: 09-01-2023 Tobacco use panel [facility] National Score (1-100), lower number is lower risk Not on file [facility] Clinical Notes 02-14-2022 to 09-01-2023 Cleve Monahan MD - 09/01/2023 8:02 AM [facility] - RT Harry(R) - 08/15/2022 4:00 PM CARLOSTCristela Nicholas APRN.WIRE REPAIRER - 03/12/2022 12:55 PM EDTPatient Instructions Note Date & Type Note Facility 09-01-2023 Note HNO ID: [id number] Author: Cleve Monahan MD Service: ? Author Type: Physician Type: Progress Notes Filed: 09/01/2023 8:19 AM Note Text: Patient presents with: Sore Throat: Cough x 2 days HPI: Feeling sick for 3 days. Positive symptoms: Cough, Sore throat, clear Rhinorrhea, Negative symptoms: Fever, Nausea, Vomiting, Diarrhea, OTC: Lozenges, nyquil, taking medrol for right knee injury MEDICATIONS: Current Outpatient Medications Medication Sig methylPREDNISolone (MEDROL DOSE-PACK) 4 mg Dose-Pack Take 4 mg by mouth once daily. levothyroxine (SYNTHROID) 150 mcg tablet Take 220 mcg by mouth once daily. fluticasone (FLONASE) 50 mcg/actuation nasal spray Use 2 Sprays in each nostril once daily. No current facility-administered medications for this visit. ALLERGIES: ALLERGIES Allergen Reactions Adhesive Swelling VITALS: BP 147/91 Pulse 65 Temp 37 ?C (98.6 ?F) Resp 18 Wt 99.6 kg (219 lb 9.6 oz) SpO2 99% BMI 32.43 kg/m? PHYSICAL EXAM: GEN: mildly ill appearing HEENT: PERRL, EOMI, conjunctiva clear Ears: canals clear. TMs without erythema, bulge, or effusion Sinuses: non-tender frontal sinus, non-tender maxillary sinuses Throat: moist mucous membranes, mild erythema, no exudate Neck: supple, no thyromegaly, no lymphadenopathy HEART: regular rate and rhythm, no murmurs LUNGS: clear to auscultation, no wheezes or crackles, no increased WOB ASSESSMENT/PLAN: 1. Sore throat - ICD9: 462, ICD10: J02.9 - STREP A MOLECULAR (POC) - negative. - suspect viral URI, differential includes COVID-19. He will do a home COVID test. - Discussed supportive care treatment with home isolation, rest, cold medicine, and analgesia. - Red flags to seek further treatment include chest pain, shortness of breath, and lethargy; in the ER if severe. Cleve Monahan MD [facility] 09-01-2023 History of Presen t illness Narrative Patient presents with: Sore Throat: Cough x 2 days HPI: Feeling sick for 3 days. Positive symptoms: Cough, Sore throat, clear Rhinorrhea, Negative symptoms: Fever, Nausea, Vomiting, Diarrhea, OTC: Lozenges, nyquil, taking medrol for right knee injury MEDICATIONS: Current Outpatient Medications Medication Sig methylPREDNISolone (MEDROL DOSE-PACK) 4 mg Dose-Pack Take 4 mg by mouth once daily. levothyroxine (SYNTHROID) 150 mcg tablet Take 220 mcg by mouth once daily. fluticasone (FLONASE) 50 mcg/actuation nasal spray Use 2 Sprays in each nostril once daily. No current facility-administered medications for this visit. ALLERGIES: ALLERGIES Allergen Reactions Adhesive Swelling VITALS: BP 147/91 Pulse 65 Temp 37 C (98.6 F) Resp 18 Wt 99.6 kg (219 lb 9.6 oz) SpO2 99% BMI 32.43 kg/m PHYSICAL EXAM: GEN: mildly ill appearing HEENT: PERRL, EOMI, conjunctiva clear Ears: canals clear. TMs without erythema, bulge, or effusion Sinuses: non-tender frontal sinus, non-tender maxillary sinuses Throat: moist mucous membranes, mild erythema, no exudate Neck: supple, no thyromegaly, no lymphadenopathy HEART: regular rate and rhythm, no murmurs LUNGS: clear to auscultation, no wheezes or crackles, no increased WOB ASSESSMENT/PLAN: 1. Sore throat - ICD9: 462, ICD10: J02.9 - STREP A MOLECULAR (POC) - negative. - suspect viral URI, differential includes COVID-19. He will do a home COVID test. - Discussed supportive care treatment with home isolation, rest, cold medicine, and analgesia. - Red flags to seek further treatment include chest pain, shortness of breath, and lethargy; in the ER if severe. Cleve Monahan MD documented in this encounter [facility] 07-03-2023 Note ORIGINAL EXAMINATION: MRI OF THE RIGHT KNEE WITHOUT CONTRAST 07/03/2023 4:01 pm TECHNIQUE: Multiplanar multisequence MRI of the right knee was performed without the administration of intravenous contrast. COMPARISON: None. HISTORY: ORDERING SYSTEM PROVIDED HISTORY: Reason for Exam: PAIN IN R KNEE FINDINGS: The cruciate ligaments appear normal. The medial collateral ligament, lateral collateral ligament and iliotibial band are intact. There is concern for a tear at the junction of the anterior horn and body of the lateral meniscus there is a small focal vertical tear in the posterior horn of the medial meniscus, sagittal image 20 of series 8. Mild thinning noted of the lateral and medial tibiofemoral cartilage. The patellar tendon, quadriceps tendon and retinaculum appear unremarkable. The patellofemoral cartilage is normal. A moderate joint effusion noted. Exaggerated lateral tilt of the patella seen. There is fissuring of the patellofemoral cartilage. The Jim's cyst measures approximately 2.6 cm. Fluid tracks inferior to the cyst. The popliteus tendon, pes anserine tendons and conjoined tendon are intact. No aggressive osseous lesion. IMPRESSION: Vertical tear in the posterior horn medial meniscus and probable vertical tear near the anterior horn-body junction of the lateral meniscus Multifocal areas of cartilage loss/attenuation Moderate joint effusion. Small partially ruptured Jim's cyst. Interpreted by: Mele Acosta MD Preliminary Report By: Mele Acosta MD Electronically signed By Mele Acosta MD Dictated Date: 07/03/2023 4:18:00 PM Prelim Date: 07/03/2023 4:23:12 PM Sign Date: 07/03/2023 4:23:12 PM Ordering Provider: MART NIELSEN [facility] 08-15-2022 Miscellaneous Notes Radiology Service Progress Note PATIENT NAME: Jori Card DATE OF SERVICE: August 15, 2022 TIME: 5:06 PM PATIENT IDENTITY VERIFICATION COMPLETED USING TWO (2) IDENTIFIERS: Name and Date of confirmed by patient verbally. FALL SCREENING: Has the patient had 2 falls in the last year or 1 fall with injury or currently using an Ambulatory Assistive Device (Walker, Cane, Wheelchair, Crutches, etc.)? No PATIENT GENDER DATA: Male PATIENT RELEVANT IMPLANT DATA REVIEWED: Not Applicable RADIOLOGY DEPARTMENT: General X-ray: Exam(s) Completed: Upper Extremity X-Ray(s): Shoulder, AP / TRUE AP right PERIPHERAL IV DATA: Not applicable SIGNED BY: RT Harry(Diomedes) August 15, 2022 5:06 PM documented in this encounter [facility] 03-12-2022 History of Presen t illness Narrative This note was created using [employer]. Subjective Jori Card is a 41 year old male. HPI by patient: Jroi Card is a 41 year old male presenting to the office with the complaint of left eye swelling. Started yesterday, woke up with eyes tearing. Associated symptoms include eye drainage, crusting of the eyes, ocular pain, a little runny nose, cough, sore throat, and headache- yesterday. Denies change in vision, light sensitivity, itching of the eye, fatigue, shortness of breath, dizziness, nausea, vomiting, diarrhea, fevers, and body aches. Vaccinated for influenza: none. Covid Immunization Dates Overdue - COVID-19 VACCINE (1) Overdue - never done No completion, postpone, frequency change, or communication history exists for this topic. Personal history of Covid: none. Flu/RSV contacts: none. Strep contacts: none. Sick contacts: none. Covid + contacts: none. Travel in the last 14 days: none. Smoking history/second hand smoke: none. OTC mucinex night/day. No antibiotic use in the last 30 days. ALLERGIES No Known Allergies Family History Reviewed Including Cardiac Diseases, Psychiatric Diseases, & Substance Abuse Problem: No Known Problems Relation: Brother Age of Onset: (Not Specified) Comment: thyroid cancer Problem: No Known Problems Relation: Paternal Grandmother Age of Onset: (Not Specified) Comment: thyroid cancer Social History Tobacco Use Smoking status: Former Smoker Quit date: 02/02/1994 Years since quittin.1 Smokeless tobacco: Never Used Vaping Use Vaping Use: Never used Alcohol use: No Drug use: No Active Ambulatory Problems No Active Ambulatory Problems Resolved Ambulatory Problems No Resolved Ambulatory Problems Past Medical History: No date: NEGATIVE MEDICAL HISTORY Review of Systems Constitutional: Positive for fatigue. Negative for chills and fever. HENT: Positive for congestion and sore throat. Negative for ear pain. Eyes: Positive for pain, discharge and redness. Negative for photophobia, itching and visual disturbance. Respiratory: Positive for cough. Negative for shortness of breath. Cardiovascular: Negative. Gastrointestinal: Negative. Endocrine: Negative. Genitourinary: Negative. Musculoskeletal: Negative. Skin: Negative. Neurological: Positive for headaches. Objective BP 122/80 Pulse 74 Temp 37.1 C (98.8 F) (Tympanic) Resp 12 Wt 100.6 kg (221 lb 11.2 oz) SpO2 98% BMI 32.74 kg/m Physical Exam Vitals reviewed. Constitutional: General: He is not in acute distress. Appearance: He is not ill-appearing, toxic-appearing or diaphoretic. Eyes: General: Lids are normal. Right eye: No discharge. Left eye: No discharge. Extraocular Movements: Extraocular movements intact. Conjunctiva/sclera: Right eye: Right conjunctiva is not injected. Left eye: Left conjunctiva is injected. Pupils: Pupils are equal, round, and reactive to light. Cardiovascular: Rate and Rhythm: Normal rate and regular rhythm. Pulmonary: Effort: Pulmonary effort is normal. Lymphadenopathy: Head: Left side of head: No submandibular adenopathy. Psychiatric: Behavior: Behavior is cooperative. Assessment and Plan (J06.9) Viral URI with cough (primary encounter diagnosis) (J02.9) Pharyngitis, unspecified etiology (H10.32) Acute conjunctivitis of left eye, unspecified acute conjunctivitis type Plan: tobramycin (TOBREX) 0.3 % ophthalmic solution Education on viral vs bacterial infections. Most viral infections will last 10 days, sometimes 14. It is possible to have back to back viral infections. An antibiotic will not treat a virus. -Declines viral testing, will send strep culture. -Wash hands before and after touching the eye. Do not rub the eye. -Warm compress to remove any drainage if there is any. Cool compress for comfort or itchiness. -If you have bacterial conjunctivitis, pink eye, you are -If you wear contacts dispose of old contacts and open a new pair after treatment is complete; typically after 7 days. -If no improvement in 48 hours please follow up with Ophthalmology -Drink lots of fluids and get plenty of rest. Gargle with salt water 3 times/day. -Vaporizers, cool mist humidifiers, warm showers, and warm fluids help open respiratory and sinus passages. Clean humidifiers daily. -OTC tylenol as directed on the bottle. May use OTC Ibuprofen if there is no underlying blood pressure/heart disease. -Saline nasal spray as needed. Flonase twice daily can help reduce inflammation through the sinus cavities. -OTC Mucinex DM or generic version for cough/congestion for those over the age of 12. -Cough/deep breathing education, promote clearing of the airways and good lung expansion. -Make follow up with primary care for monitoring and resolution in symptoms. -Signs that warrant an ER evaluation: Sudden change/worsening in condition, lethargy, signs of dehydration, fever greater than 102 F that is not responding to Tylenol or ibuprofen (Motrin, Advil), drooling, difficulty swallowing, difficulty breathing, shortness of breath, chest pain, evidence of airway compromise (tripod position, neck extension, retractions), seizures, changes in mental status, or other concerns. The patient will pursue further outpatient evaluation with the primary care physician or another Urgent Care/Express Care as outlined in the after visit summary. The patient is agreeable to this plan of care and follow-up instructions have been explained in detail. The patient has received these instructions in written format and have expressed an understanding of the after visit summary. Medical Decision Making: Level: 3 - Low I spent a total of 20 minutes on the date of the service which included preparing to see the patient, [id number] patient care, completing clinical documentation, obtaining and/or reviewing separately obtained history, performing a medically appropriate examination, counseling and educating the patient/family/caregiver and ordering medications, tests, or procedures. documented in this encounter [facility] 03-12-2022 Instructions Cristela Nicholas APRN.SADIE - 03/12/2022 12:55 PM EDT (J06.9) Viral URI with cough (primary encounter diagnosis) (J02.9) Pharyngitis, unspecified etiology (H10.32) Acute conjunctivitis of left eye, unspecified acute conjunctivitis type Plan: tobramycin (TOBREX) 0.3 % ophthalmic solution Education on viral vs bacterial infections. Most viral infections will last 10 days, sometimes 14. It is possible to have back to back viral infections. An antibiotic will not treat a virus. -Declines viral testing, will send strep culture. -Wash hands before and after touching the eye. Do not rub the eye. -Warm compress to remove any drainage if there is any. Cool compress for comfort or itchiness. -If you have bacterial conjunctivitis, pink eye, you are -If you wear contacts dispose of old contacts and open a new pair after treatment is complete; typically after 7 days. -If no improvement in 48 hours please follow up with Ophthalmology -Drink lots of fluids and get plenty of rest. Gargle with salt water 3 times/day. -Vaporizers, cool mist humidifiers, warm showers, and warm fluids help open respiratory and sinus passages. Clean humidifiers daily. -OTC tylenol as directed on the bottle. May use OTC Ibuprofen if there is no underlying blood pressure/heart disease. -Saline nasal spray as needed. Flonase twice daily can help reduce inflammation through the sinus cavities. -OTC Mucinex DM or generic version for cough/congestion for those over the age of 12. -Cough/deep breathing education, promote clearing of the airways and good lung expansion. -Make follow up with primary care for monitoring and resolution in symptoms. -Signs that warrant an ER evaluation: Sudden change/worsening in condition, lethargy, signs of dehydration, fever greater than 102 F that is not responding to Tylenol or ibuprofen (Motrin, Advil), drooling, difficulty swallowing, difficulty breathing, shortness of breath, chest pain, evidence of airway compromise (tripod position, neck extension, retractions), seizures, changes in mental status, or other concerns. Clear. You re in the normal range. Straight mucus is mostly water, with proteins, antibodies and dissolved salts. Your nasal tissues produce it 24/7. Most of it flows down the back of your throat to be dissolved in the stomach. White. You re congested. Swollen, inflamed tissues in your nose are slowing the flow of mucus, causing it to lose moisture and become thick and cloudy. This can be a sign of a nasal infection or cold. Yellow. Your cold or infection is progressing. Infection-fighting cells might be rushing to the site of the microbial infection. White blood cells are among them as well. Once exhausted, they re carried off on the mucosal tide, lending it a yellowish tinge. Colds inevitably last 10 to 14 days. [place] down and wait it out. Green. Your immune system is really fighting back. The mucus is thick with white cells and other wreckage from the [place]. If you re still sick after about 12 days, you may want to see a doctor. It could be sinusitis, a bacterial infection. If you re feverish or nauseated, see a doctor soon. [place] or red. This is blood. Your nasal tissue in the nose has somehow become broken perhaps because it s dry, irritated or suffered some kind of impact. Brown. This shade could be blood, but likely it s something inhaled, like dirt, snuff or paprika. documented in this encounter [facility] 02-14-2022 History of Presen t illness Narrative Radiology Service Progress Note PATIENT NAME: Jori Card DATE OF SERVICE: February 14, 2022 TIME: 1:02 PM PATIENT IDENTITY VERIFICATION COMPLETED USING TWO (2) IDENTIFIERS: Name and Date of confirmed by patient verbally. FALL SCREENING: Has the patient had 2 falls in the last year or 1 fall with injury or currently using an Ambulatory Assistive Device (Walker, Cane, Wheelchair, Crutches, etc.)? No PATIENT GENDER DATA: Male PATIENT RELEVANT IMPLANT DATA REVIEWED: Not Applicable RADIOLOGY DEPARTMENT: General X-ray: Exam(s) Completed: Chest X-Ray PERIPHERAL IV DATA: Not applicable SIGNED BY: DORIS Bowers February 14, 2022 1:02 PM documented in this encounter [facility] Evaluation + Plan note No data available for this section [facility] Diagnosis Sore throat- Primary Acute pharyngitis documented in this encounter [facility] Discharge instructions No data available for this section [facility] Progress note No data available for this section [facility] Summary Purpose Family History No Family History Records FoundNo Family History Records FoundNo Family History Records FoundNo Family History Records FoundNo Family History Records FoundNo Family History Records FoundNo Family History Records FoundNo Family History Records Found No data available for this section No Family History Records FoundNo Family History Records FoundNo Family History Records Found Advance Directives No Advanced Directives Records FoundDocuments on File Type Date Recorded Patient Office Support Expl anation Advance Directive(s) 06/01/2020 8:02 PM Additional Source Comments (unrecognized sect ion and content) No Status Records FoundNo Status Records FoundNo Status Records FoundNo Status Records FoundNo Status Records FoundNo Status Records FoundNo Status Records FoundNo Status Records FoundNo Status Records FoundNo Status Records FoundNo Status Records Found INFORMATION SOURCE (unrecogn ized section and content) DATE CREATED AUTHOR AUTHOR'S ORGANIZ ATION 05/21/2018 [facility] DATE CREATED AUTHOR AUTHOR'S ORGANIZ ATION 04/18/2019 [facility] DATE CREATED AUTHOR AUTHOR'S ORGANIZ ATION 03/06/2020 [facility] DATE CREATED AUTHOR AUTHOR'S ORGANIZ ATION 02/15/2021 [facility] DATE CREATED AUTHOR AUTHOR'S ORGANIZ ATION 02/20/2021 [employer] DATE CREATED AUTHOR AUTHOR'S ORGANIZ ATION 10/16/2022 [facility] DATE CREATED AUTHOR AUTHOR'S ORGANIZ ATION 10/24/2022 [facility] DATE CREATED AUTHOR AUTHOR'S ORGANIZ ATION 07/06/2023 [facility] DATE CREATED AUTHOR AUTHOR'S ORGANIZ ATION 09/02/2023 [facility] DATE CREATED AUTHOR AUTHOR'S ORGANIZ ATION 09/04/2023 [facility] Source Comments (unrecognize d section and content) In the event this informatio n is protected by the Federal Confidentiality of Alcohol and Drug Abuse Patient Records regulations: The Federal rules restrict any use of the information to criminally investigate or prosecute any alcohol or drug abuse patient.[facility] the event this information is protected by the Federal Confidentiality of Alcohol and Drug Abuse Patient Records regulations: The Federal rules restrict any use of the information to criminally investigate or prosecute any alcohol or drug abuse patient.[facility] the event this information is protected by the Federal Confidentiality of Alcohol and Drug Abuse Patient Records regulations: The Federal rules restrict any use of the information to criminally investigate or prosecute any alcohol or drug abuse patient.[facility] the event this information is protected by the Federal Confidentiality of Alcohol and Drug Abuse Patient Records regulations: The Federal rules restrict any use of the information to criminally investigate or prosecute any alcohol or drug abuse patient.[facility] Care Teams (unrecognized sec tion and content) [employer] Relationship Specialty Start Date End Date Candi Rodriguez MD [address] [facility] [address] [place] [address] PCP - General Internal Medicine 12/26/18 [employer] Super[employer] Relationship Specialty Start Date End Date Candi Rodriguez MD [address] [facility] [address] [place] [address] PCP - General Internal Medicine 12/26/18 Reason for Visit (unrecogniz ed section and content) Reason Comments Sore Throat Cough x 2 days FOR RECORDS PERTAINING TO PATIENTS WHO ARE OR HAVE BEEN ENROLLED IN A CHEMICAL DEPENDENCY/SUBSTANCEABUSE PROGRAM, SOME INFORMATION MAY BE OMITTED. This clinical summary was aggregated from multiple sources. Caution should be exercised in using it in the provision of clinical care. This summary normalizes information from multiple sources, and as a consequence, information in this document may materially change the coding, format and clinical context of patient data. In addition, data may be omitted in some cases. CLINICAL DECISIONS SHOULD BE BASED ON THE PRIMARY CLINICAL RECORDS. [employer] [facility]. provides no warranty or guarantee of the accuracy or completeness of information in this document.
[2023-12-06 19:57] LABS: Troponin-I HS 4 pg/mL (3.0-78.0)
[2023-12-06 20:27] VITALS: BP 139/83; PULSE 60; RESP 18; O2SAT 100
== END 2023-12-06 20:30 | disposition home or self-care (01) ==
PROVIDERS: Emergency Provider Emergency Medicine; PCP Internal Medicine; Visit Provider Emergency Medicine
DX: R07.9 Chest pain, unspecified (principal); E89.2 Postprocedural hypoparathyroidism; E03.9 Hypothyroidism, unspecified; Z79.899 Other long term (current) drug therapy
CPT/HCPCS: 71045; 80048; 84484; 85025; 85379; 93005; 96360; 99284; J7030; A4216

== ENCOUNTER 2024-02-11 10:21 | Emergency (ER) | payer BC, SELFPAY ==
[2024-02-11 10:22] VITALS: BP 132/82; PULSE 48; PULSE 49; RESP 12; TEMP 36.8; O2SAT 99; BMI 32.0
--- NOTE | 2024-02-11 10:58 | EDS_ITS ---
HPI History of Present Illness Chief Complaint: Chest Other Detail of Chief Complaint: Left chest wall pain and abdominal bloating Informant: patient Narrative Narrative: Patient presents with left rib/chest pain that started 3 days ago. He denies any injury. Denies lifting or straining. Currently not working. Denies recent travel or surgery. Pain is worse with movement and deep breath. Patient also has had abdominal bloating for about a month. Patient does see a associate software application engineer because there is a family history of colon cancer. He states he had a colonoscopy about 3 years ago and had some polyps but no other abnormalities. Patient also denies any blood in his stool or black tarry stool. Patient denies any fevers. He did have knee surgery in September 2023. No history of PE or DVT. PFSH PFSH Medical History Arthritis Back pain Foot pain Hypothyroidism Loose, teeth Multinodular thyroid Multiple thyroid nodules Neck pain Home Medications ibuprofen 200 mg capsule 200 mg PO Q6H PRN Pain 02/09/22 [History Last Taken 02/08/22] ibuprofen 800 mg tablet 800 mg PO Q6H PRN pain, mild 10/14/23 [History Last Taken Unknown] levothyroxine 200 mcg capsule 225 mcg PO DAILY 10/14/23 [History Last Taken Unknown] Allergy/AdvReac Type Severity Reaction Status Date / Time adhesive tape AdvReac Mild Rash Verified 02/11/24 10:22 Family History Brother Cancer thyroid Father Hypertension Grandmother Cancer thyroid Colon cancer Surgical History History of colonoscopy (~2015) History of laminectomy History of total thyroidectomy S/P knee surgery S/P total thyroidectomy Social History household members: significant other Smoking Status: Never smoker ROS ROS ED Review of Systems ROS Unobtainable: other Constitutional Constitutional ED: Reports lethargy; Denies chills, fever(s), sweats or weight loss Eyes Eyes: Denies blurry vision, change in vision or diplopia ENT ENT ED: Denies rhinorrhea or sore throat Cardiovascular Cardiovascular: Reports chest pain; Denies orthopnea or racing heartbeat Respiratory/Chest Respiratory/Chest: Denies cough, dyspnea, dyspnea on exertion, orthopnea or sputum Gastrointestinal Gastrointestinal: Reports abdominal pain and other Details: Abdominal bloating ; Denies diarrhea, nausea or vomiting Genitourinary Genitourinary ED: Denies dysuria, hematuria or urinary frequency Musculoskeletal Musculoskeletal: Denies arthralgias, back pain, myalgias or neck pain Integumentary Denies abscess, Abrasions or rash Neurologic Neurologic: Denies headache(s) or weakness Psychiatric Psychiatric: Denies anxiety, depression or suicidal thoughts Endocrine Endocrinology: Denies polydipsia, polyphagia or polyuria Hematologic/Lymphatic Hematologic/Lymphatic: Denies easy bleeding, easy bruising or lymphadenopathy Allergic/Immunologic Allergic/Immunologic ED: Denies mouth swelling, tongue swelling or urticaria EXAM Physical Exam Const Vital Signs: 02/11/24 10:22 02/11/24 10:22 02/11/24 10:46 Temperature 98.3 F Temperature Source Temporal Pulse Rate 48 L 49 L Respiratory Rate 12 Respiratory Effort Normal Non-Labored Blood Pressure 132/82 H Blood Pressure Mean 98 Pulse Ox 99 Oxygen Delivery Method Room Air 02/11/24 14:45 Temperature 97.9 F Temperature Source Pulse Rate 74 Respiratory Rate 16 Respiratory Effort Blood Pressure 122/85 H Blood Pressure Mean 97 Pulse Ox 99 Oxygen Delivery Method Positive well nourished and well developed General Appearance ED: well developed and NAD HEENT Reports TM's clear and moist mucous membranes normocephalic and atraumatic; Negative for trauma or tenderness Tympanic Membrane ED: Yes TM's clear Eyes PERRL and EOMs intact bilaterally General Eye ED: Negative for pale conjunctiva or scleral icterus Neck no lymphadenopathy, supple and no JVD General: Negative for tenderness Chest Wall inspection of chest normal and palpation of chest normal Chest Narrative: Tenderness to left anterior chest wall. There are some guarding. There is no erythema or warmth or rashes noted. Pain seems to be somewhat reproducible. Chest: Negative for tenderness Resp normal respiratory effort and clear to auscultation bilaterally Effort and Inspection: Negative for respiratory distress or pain with movement Auscultation: Negative for rhonchi, wheezes or diminished lung sounds Cardio regular rate, regular rhythm, S1 normal heart sound, S2 normal heart sound and no murmurs Peripheral Pulses: pulses 2+ throughout GI normal to inspection, nondistended, normoactive bowel sounds, soft to palpation, non-distended and no masses GI Narrative: Tenderness over the epigastric region and left upper quadrant. Mild guarding. No rebound, rigidity, or pineal signs. No mass palpated. Back/Spine no CVA tenderness and no thoracic nor lumbar tenderness Extremity normal to inspection General Extremety ED: Negative for edema General Extremity: Negative for edema Neuro oriented x3, CN's II-XII intact bilaterally, no sensory deficits noted and gait normal Sensorium / Orientation: awake, alert, oriented to person, oriented to place and oriented to time Motor Exam: strength 5/5 throughout and strength abnormal Psych mental status grossly normal Skin no rashes or lesions noted and no wounds MDM MDM MDM Narrative Medical decision making narrative: Patient presents to the emergency department with left chest pain without any trauma. Pain worse with movement and deep breath. Patient also complains of abdominal pain and fullness. IV line established. CBC with differential obtained showing a 6.3 with hemoglobin 14.6 and platelet count of 151. Chemistries unremarkable. LFTs were normal. BUN/creatinine were normal. Lactate was normal at 1.5. Lipase normal at 20. Urinalysis was normal. Lactate normal 1.5. CT scan of the abdomen pelvis with IV contrast was normal. Patient also had a chest x-ray that was normal. Patient tells me that he supposed to be on medication for gastritis or ulcer but does not like taking medications. Does have occasional heartburn. Patient will be advised to follow-up with his associate software application engineer regarding the abdominal bloating. He is advised to go back on his antiulcer medication. Patient has chest wall pain. Recommended Tylenol for discomfort. I do not feel he is having acute coronary syndrome. PE ruled out. Lab Data Attestation: I reviewed the patient's lab results. Labs: Laboratory Results - last 24 hr 02/11/24 02/11/24 11:05 11:45 WBC 6.3 RBC 4.72 Hgb 14.6 Hct 42.7 MCV 90.5 MCH 30.9 MCHC 34.2 RDW Std Deviation 40.9 RDW Coeff of [place] 12.3 Plt Count 151 MPV 10.6 Immature Gran % (Auto) 0.200 Neut % (Auto) 64.5 Lymph % (Auto) 22.7 [place] % (Auto) 10.2 H Eos % (Auto) 2.1 Baso % (Auto) 0.3 Absolute Neuts (auto) 4.0 Absolute Lymphs (auto) 1.42 Nucleated RBC % 0 D-Dimer Quant (PE/DVT) 0.27 Sodium 139 Potassium 4.1 Chloride 109 H Carbon Dioxide 24.0 Anion Gap 6 BUN 19 H Creatinine 1.17 Estim Creat Clear Calc 99.97 Est GFR (MDRD) Af Amer 87 Est GFR (MDRD) Non-Af 72 BUN/Creatinine Ratio 16.2 Glucose 105 Lactic Acid 1.5 Calcium 8.5 Total Bilirubin 0.60 AST 26 ALT 41 Alkaline Phosphatase 69 Total Protein 7.3 Albumin 4.1 Globulin 3.2 Albumin/Globulin Ratio 1.3 Lipase 20 Urine Color Yellow Urine Clarity Clear Urine pH 5.0 Ur Specific [place] 1.020 Urine Protein 15 H Urine Glucose (UA) Normal Urine Ketones Negative Urine Occult Blood Negative Urine Nitrite Negative Urine Bilirubin Negative Urine Urobilinogen Normal Ur Leukocyte Esterase Negative Urine RBC 0 SEEN Urine WBC 0 SEEN Ur Squamous Epith Cells 0 SEEN Urine Bacteria 0 SEEN Urine Mucus 0 SEEN Radiography Diagnostic Testing: Clinical Impression(s) from Imaging Studies Abdomen/Pelvis CT 02/11/24 12:39 IMPRESSION: No acute abdominal or pelvic pathology. Fatty liver. Electronically Signed: Yair Aparicio MD at 14:07 EDT , Chest X-Ray 02/11/24 12:39 IMPRESSION: No acute thoracic pathology. Electronically Signed: Yair Aparicio MD at 14:03 EDT , 1 view chest x-ray obtained interpreted by myself as no evidence of infiltrate or pneumothorax or acute disease process. Radiology in agreement. EKG Initial EKG: Attestation: I personally reviewed and interpreted this EKG as follows: Comments: Sinus bradycardia with no acute ST segment changes. Ventricular rate was 47 bpm. Discharge Plan Triage Chief Complaint: Chest Other ED Provider: Modesto Newsome Dx/Rx/DC Orders Clinical Impression: Chest wall pain, Abdominal pain Instructions: ED Chest Wall Pain, Costochondritis, ED Abdominal Pain Unkn Cause Male... Prescriptions: No Action ibuprofen 200 mg Capsule 200 mg PO Q6H PRN (Reason: Pain) ibuprofen 800 mg tablet 800 mg PO Q6H PRN (Reason: pain, mild) Patient Comments: TAKE 1 TABLET BY MOUTH EVERY 6 TO 8 HOURS NEEDED levothyroxine 200 mcg capsule 225 mcg PO DAILY Primary Care Provider: JUANI ALBA Referrals: JUANI ALBA MD [Primary Care Provider] - Activity Restrictions/Additional Instructions: Follow-up with your primary care physician and associate software application engineer if symptoms persist. Take your antiulcer medication. Disposition Disposition: Home, Self Care Discharge Date/Time: 02/11/24 14:45
[2024-02-11 11:17] LABS: Absolute Lymphocyte Count 1.42 X10^3/uL (0.83-4.51); Basophil# 0.02 X10^3/uL; Basophil% 0.3 % (0-1); Eosinophil# 0.13 X10^3/uL; Eosinophils% 2.1 % (0-5); Hematocrit 42.7 % (40-54); Hemoglobin 14.6 g/dL (13.0-16.5); Lymphocyte # 1.42 X10^3/ul (0.83-4.51); Lymphocyte % 22.7 % (19-41); Mean Corp Hgb Conc 34.2 g/dL (32-36); Mean Corpuscular Hgb 30.9 pg (27.0-32.0); Mean Corpuscular Volume 90.5 fL (80-94); Mean Platelet Vol. 10.6 fl (6.2-12.0); Monocyte# 0.64 X10^3/uL; Monocyte% 10.2 % (0-10); NRBC Flagged by Analyzer 0 % (0-5); Neutrophil # 4.03 X10^3/uL (2.7-7.7); Neutrophil % 64.5 % (47-70); Platelet Count 151 K/mm3 (150-450); RBC Distribution Width CV 12.3 % (11.6-14.6); RBC Distribution Width SD 40.9 fl (35.1-43.9); Red Blood Count 4.72 M/mm3 (4.6-6.2); White Blood Count 6.3 K/mm3 (4.4-11.0)
[2024-02-11 11:32] LABS: ALB/GLOB Ratio 1.3 RATIO (0.9-2.4); AST(SGOT) 26 U/L (15-37); Alanine Aminotransfer ALT/SGPT 41 U/L (16-61); Albumin, Serum 4.1 g/dL (3.2-5.0); Alkaline Phosphatase 69 U/L (45-117); Anion Gap 6 (5-15); BUN 19 mg/dL (7-18); BUN/Creat Ratio 16.2 RATIO (10-20); Calcium,Total 8.5 mg/dL (8.5-10.1); Chloride 109 mmol/L (98-107); Creatinine, Serum 1.17 mg/dL (0.70-1.30); EST Glomerular Filtration Rate 72 mL/min (>60); Est Glom Filt Rate - Afr Amer 87 mL/min (>60); Estimated Creatinine Clearance 99.97 ml/min; Globulin 3.2 g/dL (2.2-4.2); Glucose 105 mg/dL (74-106); Lipase 20 U/L (13-75); Potassium 4.1 mmol/L (3.5-5.1); Protein, Total 7.3 g/dL (6.4-8.2); Sodium Level 139 mmol/L (136-145)
[2024-02-11 11:38] LABS: Lactic Acid 1.5 mmol/L (0.4-1.9)
[2024-02-11 11:50] LABS: Bacteria 0 SEEN /hpf (None Seen); Mucous, Urine 0 SEEN /hpf (<or=2+); Red Blood Cells-Urine 0 SEEN /hpf (0-5); Squamous Epithelial Cells - UA 0 SEEN /hpf (0-5); White Blood Cells 0 SEEN /hpf (0-5)
[2024-02-11 11:52] LABS: D-Dimer Quantitative (DVT/PE) 0.27 FEU/ug/m (0.27-0.49)
[2024-02-11 11:53] LABS: Glucose, Dipstick Normal (Normal); Ketone-Dipstick Negative (Negative); Leukocyte Esterase-Dipstick Negative /ul (Negative); Nitrite-Dipstick Negative (Negative); Occult Blood-Urine Negative /ul (Negative); Protein-Dipstick 15 mg/dl (Negative); Urine Bilirubin Dipstick Negative (Negative); Urine Urobilinogen Normal (Normal)
[2024-02-11 11:59] LABS: Color, Urine Yellow (Yellow); Urine Clarity Clear (Clear)
--- OUTSIDE RECORDS SUMMARY | 2024-02-11 12:03 | XMS RPT_ITS | CCD ---
Author Name Unknown Address [address] [place] [address] Organization [facility] Care Team Providers Care Musculoskeletal Physiotherapist Name Role Phone ABHINAV HERNANDEZ Unavailable Unavailable [...] Primary Care Unavailable GIA JESUS, DR MART Manuel Attending Unavailab Candi Cisneros MD Primary Care Provider PROVIDER, UNKNOWN Primary Care Unavailable PROVIDER, UNKNOWN Primary Care Unavailable CANDI RODRIGUEZ Primary Care Unavailable Allergies Allergy Classification Reported Allergen(s) Allergy Type Date of Onset Reaction(s) Facility (1 source) Adhesive agent Drug Allergy 09-01-2023 [facility] Medications Current Medications Medication Drug Class(es) [...] 98.6 [degF] Cleve Monahan MD Work Phone: [facility] 09-01-2023 07:46-0400 Body weight 99.61 kg Cleve Monahan MD Work Phone: [facility] 09-01-2023 07:46-0400 Diastolic blood pressure 91 mm[Hg] Cleve Monahan MD Work Phone: [facility] 09-01-2023 07:46-0400 Heart rate 65 /min Cleve Monahan MD Work Phone: [facility] 09-01-2023 07:46-0400 Respiratory rate 18 /min Cleve Monahan MD Work Phone: [facility] 09-01-2023 07:46-0400 SaO2% (BldA) [Mass fraction] 99 % Cleve Monahan MD Work Phone: [facility] 09-01-2023 07:46-0400 Systolic blood pressure 147 mm[Hg] Cleve Monahan MD Work Phone: [facility] 03-12-2022 12:20-0400 Body temperature 98.8 [degF] Cristela Nicholas SEO ANALYST.[employer]RAZZ[employer]ISHER Work Phone: [facility] 03-12-2022 12:20-0400 Body weight 100.56 kg Cristela Nicholas SEO ANALYST.TERRAZZO POLISHER Work Phone: [facility] 03-12-2022 12:20-0400 Diastolic blood pressure 80 mm[Hg] Cristela Nicholas SEO ANALYST.TERRAZZO POLISHER Work Phone: [facility] 03-12-2022 12:20-0400 Heart rate 74 /min Cristela Nicholas SEO ANALYST.TERRAZZO POLISHER Work Phone: [facility] 03-12-2022 12:20-0400 Respiratory rate 12 /min Cristela Nicholas SEO ANALYST.[employer]ZZO POLISHER Work Phone: [facility] 03-12-2022 12:20-0400 SaO2% (BldA) [Mass fraction] 98 % Cristela Nicholas APRN.[employer]ISHER Work Phone: [facility] 03-12-2022 12:20-0400 Systolic blood pressure 122 mm[Hg] Cristela Nicholas APRN.CNP Work Phone: [facility] Encounters Encounter Date Encounter Type Care Provider Facility Start: 09-01-2023 End: 09-01-2023 ambulatory CANDI RODRIGUEZ Facility:[facility] Start: 09-01-2023 End: 09-01-2023 Patient encounter procedure Cleve Monahan MD Work Phone: [facility] Procedures Date Procedure Procedure Detail Performing Clinician Start: 09-01-2023 STREP A MOLECULAR (POC) Mark Benton APRN.TERRAZZO POLISHER Work Phone: Start: 02-14-2022 Radiologic exam ches t 2 views Candi Rodriguez MD Work Phone: Start: 02-12-2021 Follow-up visit None (qualifier value) DR JAMAICA JESUS Plan of Treatment Date Care Activity Detail Author Start: 07-28-2023 Influenza vaccination Influenza Vaccine (#1) [facility] Start: 11-27-2022 Depression Assessment Depression Assessment [facility] Start: 07-28-2022 Influenza vaccination [facility] Start: 07-28-2021 Influenza vaccination INFLUENZA (#1) [facility] Start: 2015 Lipid 1996 panel - Serum or Plasma Lipid Screening [facility] Start: 2015 LIPID SCREEN LIPID SCREEN [facility] Start: 1999 Urine microalbumin profile [facility] Start: 1998 HEPATITIS C SCREENING HEPATITIS C SCREENING [facility] Start: 1998 HIV SCREENING HIV SCREENING [facility] Start: 1992 Adult depression screening assessment DEPRESSION SCREENING [facility] Start: 1985 COVID-19 VACCINE (1) COVID-19 VACCINE (1) [facility] Start: 04-12-1981 COVID-19 VACCINE (#1) COVID-19 VACCINE (#1) [facility] Start: 1980 HEPATITIS B (1 of 3 - 3-dose series) HEPATITIS B (1 of 3 - 3-dose series) [facility] Start: 1980 Hepatitis B Vaccine (1 of 3 - 3-dose series) Hepatitis B Vaccine (1 of 3 - 3-dose series) [facility] GROUP A STREPTOCOCCU S BY PCR GROUP A STREPTOCOCCUS BY PCR Lab Today Pharyngitis, unspecified etiology Ordered: 03/12/2022 [facility] Work Phone: Payers Date Payer Category Payer Unknown [employer] PPO [id number] 2021-Present [phone] [address] [place] [address] PPO [id number] 2021 Unknown [employer]ILEE HORN [employer] PPO [id number] 2021-Present [phone] [address] [place] [address] PPO [id number] 2021 Unknown [id number] 1980 Unknown [id number] 1980 Unknown [id number] Self-pay Social History Date Type Detail Facility Start: 02-03-2020 End: 09-01-2023 Tobacco smoking status NHIS Ex-smoker [facility] End: 02-02-1994 History of tobacco use Current smoker [facility] Start: 02-03-2020 End: 09-01-2023 Tobacco use and exposure Smokeless tobacco non-user [facility] Start: 06-01-2020 End: 09-01-2023 Alcohol intake Current non-drinker of alcohol (finding) [facility] Start: 1980 Sex Assigned At Not on file [facility] Start: 02-04-2022 End: 08-15-2022 Exposure to SARS-CoV-2 (event) Not sure [facility] End: 02-02-1994 History of tobacco use Cigarette Smoker [facility] Tobacco smoking status Never smo ked tobacco (finding) [facility] Rosalio Sex Assigned At Sex [facility] Start: 11-01-2020 End: 09-01-2023 History of Social function [facility] Start: 11-01-2020 End: 09-01-2023 Tobacco use panel [facility] National Score (1-100), lower number is lower risk Not on file [facility] Clinical Notes 02-14-2022 to 09-01-2023 Cleve Monahan MD - 09/01/2023 8:02 AM [facility] - RT Harry(R) - 08/15/2022 4:00 PM CARLOSTCristela Nicholas APRN.TERRAZZO POLISHER - 03/12/2022 12:55 PM EDTPatient Instructions Note Date & Type Note Facility 09-01-2023 Note HNO ID: [id number] Author: Cleve Monahan MD Service: ? Author [...] the ER if severe. Cleve Monahan MD [facility] 09-01-2023 History of Presen t illness Narrative [...] Cleve Monahan MD documented in this encounter [facility] 07-03-2023 Note ORIGINAL EXAMINATION: MRI OF [...] 07/03/2023 4:23:12 PM Ordering Provider: MART NIELSEN [facility] 08-15-2022 Miscellaneous Notes Radiology Service Progress [...] 2022 5:06 PM documented in this encounter [facility] 03-12-2022 History of Presen t illness Narrative This note was created using [employer]. Subjective Jori Card is a 41 year old male. HPI by patient: Jori Card is a 41 year old male [...] which included preparing to see the patient, [id number] patient care, completing clinical documentation, obtaining and/or reviewing separately obtained history, performing a medically appropriate examination, counseling and educating the patient/family/caregiver and ordering medications, tests, or procedures. documented in this encounter [facility] 03-12-2022 Instructions Cristela Nicholas APRN.SADIE - [...] Colds inevitably last 10 to 14 days. [place] down and wait it out. Green. Your immune system is really fighting back. The mucus is thick with white cells and other wreckage from the richardson. If you re still sick after about 12 days, you may want to see a doctor. It could be sinusitis, a bacterial infection. If you re feverish or nauseated, see a doctor soon. [place] or red. This is blood. Your nasal tissue in the nose has somehow become broken perhaps because it s dry, irritated or suffered some kind of impact. Brown. This shade could be blood, but likely it s something inhaled, like dirt, snuff or paprika. documented in this encounter [facility] 02-14-2022 History of Presen t illness [...] 2022 1:02 PM documented in this encounter [facility] Evaluation + Plan note No data available for this section [facility] Diagnosis Sore throat- Primary Acute pharyngitis documented in this encounter [facility] Discharge instructions No data available for this section [facility] Progress note No data available for this section [facility] Summary Purpose Family History No Family [...] FoundDocuments on File Type Date Recorded Patient Department Director Expl anation Advance Directive(s) 06/01/2020 8:02 PM Additional Source Comments (unrecognized sect ion and content) No Status Records FoundNo Status Records FoundNo Status Records FoundNo Status Records FoundNo Status Records FoundNo Status Records FoundNo Status Records FoundNo Status Records FoundNo Status Records FoundNo Status Records FoundNo Status Records Found INFORMATION SOURCE (unrecogn ized section and content) DATE CREATED AUTHOR AUTHOR'S ORGANIZ ATION 05/21/2018 [facility] DATE CREATED AUTHOR AUTHOR'S ORGANIZ ATION 04/18/2019 [facility] DATE CREATED AUTHOR AUTHOR'S ORGANIZ ATION 03/06/2020 [facility] DATE CREATED AUTHOR AUTHOR'S ORGANIZ ATION 02/15/2021 [facility] DATE CREATED AUTHOR AUTHOR'S ORGANIZ ATION 02/20/2021 [employer] DATE CREATED AUTHOR AUTHOR'S ORGANIZ ATION 10/16/2022 [facility] DATE CREATED AUTHOR AUTHOR'S ORGANIZ ATION 10/24/2022 [facility] DATE CREATED AUTHOR AUTHOR'S ORGANIZ ATION 07/06/2023 [facility] ([place] DATE CREATED AUTHOR AUTHOR'S ORGANIZ ATION 09/02/[address] [facility] DATE CREATED AUTHOR AUTHOR'S ORGANIZ ATION 09/04/2023 [facility] Source Comments (unrecognize d section and content) In the event this informatio n is protected by the Federal Confidentiality of Alcohol and Drug Abuse Patient Records regulations: The Federal rules restrict any use of the information to criminally investigate or prosecute any alcohol or drug abuse patient.[facility] the event this information is protected by the Federal Confidentiality of Alcohol and Drug Abuse Patient Records regulations: The Federal rules restrict any use of the information to criminally investigate or prosecute any alcohol or drug abuse patient.[facility] the event this information is protected by the Federal Confidentiality of Alcohol and Drug Abuse Patient Records regulations: The Federal rules restrict any use of the information to criminally investigate or prosecute any alcohol or drug abuse patient.[facility] the event this information is protected by the Federal Confidentiality of Alcohol and Drug Abuse Patient Records regulations: The Federal rules restrict any use of the information to criminally investigate or prosecute any alcohol or drug abuse patient.[facility] Care Teams (unrecognized sec tion and content) Musculoskeletal Physiotherapist Relationship Specialty Start Date End Date Candi Rodriguez MD [address] [place] [address] PCP - General Internal Medicine 12/26/18 Musculoskeletal Physiotherapist Relationship Specialty Start Date End Date Candi Rodriguez MD [address] [place] [address] PCP - General Internal Medicine 12/26/18 Reason [...] BE BASED ON THE PRIMARY CLINICAL RECORDS. [employer] [facility]. provides no warranty or guarantee of the accuracy or completeness of information in this document.
--- NOTE | 2024-02-11 12:39 | RAD_ITS ---
STUDY: X-RAY CHEST REASON FOR EXAM: Male, 43 years old. Chest pain TECHNIQUE: Frontal view of the chest COMPARISON: 12/06/2023 FINDINGS: The lungs are clear. There are no pleural effusions. There is no pneumothorax. The heart is normal in size. The visualized osseous structures are within normal limits. RAD/Chest 1 View (Portable) IMPRESSION: No acute thoracic pathology. Electronically Signed: Yair Aparicio MD at 14:03 EDT ,
--- NOTE | 2024-02-11 12:39 | CT_ITS ---
STUDY: CT ABDOMEN AND PELVIS WITH CONTRAST REASON FOR EXAM: Male, 43 years old. Abdominal pain. Left rib pain. RADIATION DOSAGE (If Supplied By Facility): CTDIvol = ( 20.67 ) mGy, DLP = ( 1105.45 ) mGycm TECHNIQUE: Transaxial images were obtained through the abdomen and pelvis without oral contrast. 100 ml of Isovue-370 contrast was administered. Sagittal and coronal images were reconstructed. Individualized dose optimization techniques were used for this CT. COMPARISON: No relevant prior comparison study available FINDINGS: LOWER THORAX: The visualized lung bases are clear. The visualized portions of the heart and pericardium are within normal limits. GALLBLADDER / BILE DUCTS: There are no calcified gallstones present. There is no intrahepatic biliary duct dilatation. The common bile duct is normal in caliber. There are no calcified ductal stones. LIVER: The liver is low in density, consistent with fatty infiltration. The liver is otherwise within normal limits. There are no suspicious hepatic lesions. SPLEEN: The spleen is normal in size. PANCREAS: The pancreas is within normal limits. ADRENAL GLANDS: The adrenal glands are within normal limits. KIDNEYS / BLADDER: There are no renal or ureteral stones. There is no hydronephrosis. There are no focal renal lesions. The urinary bladder is partially distended and appears grossly unremarkable. STOMACH / BOWEL: Normal visualized stomach. There is no bowel obstruction or inflammation. The appendix is visualized and appears normal. There is a small fat-containing umbilical hernia. There is no bowel containing hernia. PERITONEUM/RETROPERITONEUM: There is no abdominal or pelvic free air, free fluid or fluid collection. There is no abnormal soft tissue mass identified. There is no abdominal or pelvic lymphadenopathy. VESSELS: The aorta is normal in caliber. The IVC is unremarkable. BONES: The visualized osseous structures are intact. There are no destructive osseous lesions. SOFT TISSUES: The visualized soft tissues are within normal limits. CT/Abdomen/Pelvis W IV Cont ONLY IMPRESSION: No acute abdominal or pelvic pathology. Fatty liver. Electronically Signed: Yair Aparicio MD at 14:07 EDT ,
--- NOTE | 2024-02-11 14:26 | EKG12_ITS ---
Test Reason : GENERAL Blood Pressure : / mmHG Vent. Rate : 047 BPM Atrial Rate : 047 BPM P-R Int : 164 ms QRS Dur : 098 ms QT Int : 448 ms P-R-T Axes : 047 039 014 degrees QTc Int : 396 ms Sinus bradycardia Otherwise normal ECG Confirmed by JANAY JESUS, CHON ([id number]), dictionary editor MARC JOHNSON ([id number]) on 02/13/2024 10:47:08 AM Referred By: ESPERANZA Confirmed By:CHON GUSTAFSON MD
[2024-02-11 14:45] VITALS: BP 122/85; PULSE 74; RESP 16; TEMP 36.6; O2SAT 99
== END 2024-02-11 14:45 | disposition home or self-care (01) ==
PROVIDERS: Emergency Provider Emergency Medicine; PCP Internal Medicine; Visit Provider Emergency Medicine
DX: R07.89 Other chest pain (principal); R10.9 Unspecified abdominal pain; E03.9 Hypothyroidism, unspecified; Z79.899 Other long term (current) drug therapy
CPT/HCPCS: 71045; 74177; 80053; 81001; 83605; 83690; 85025; 85379; 93005; 99283; Q9967; A4216

== ENCOUNTER 2024-10-31 14:05 | Emergency (ER) | payer BC, SELFPAY ==
[2024-10-31 14:06] VITALS: BP 150/103; PULSE 63; RESP 18; TEMP 36.8; O2SAT 98; BMI 30.8
--- NOTE | 2024-10-31 14:21 | EKG12_ITS ---
Test Reason : EKGA Blood Pressure : */* mmHG Vent. Rate : 56 BPM Atrial Rate : 56 BPM P-R Int : 170 ms QRS Dur : 110 ms QT Int : 382 ms P-R-T Axes : 46 25 -12 degrees QTcB Int : 368 ms Sinus bradycardia Incomplete right bundle branch block Nonspecific T wave abnormality Abnormal ECG Confirmed by Tariq Euceda ([id number]), commercial production editor MARC JOHNSON ([id number]) on 11/01/2024 10:46:31 AM Referred By: Darrick Astudillo Confirmed By: Tariq Euceda
--- NOTE | 2024-10-31 14:21 | RAD_ITS ---
STUDY: X-RAY CHEST REASON FOR EXAM: Male, 44 years old. One week history of cough. TECHNIQUE: PA and lateral views of the chest. COMPARISON: Comparison is made with prior study dated February 11, 2024. FINDINGS: The lungs are clear and expanded. There is no demonstrated pleural abnormality. Normal size heart. Normal mediastinum and funmilayo. Normal visualized pulmonary arteries. Normal visualized aortic arch and descending thoracic aorta. Normal visualized thoracic spine. Normal visualized ribs, clavicles, and shoulders. There is no demonstrated abnormality of the visualized soft tissue structures of the upper abdomen. RAD/Chest PA and Lateral IMPRESSION: Normal x-ray examination of the chest. Electronically Signed: Trent Shelton MD at 15:01 EST ,
--- NOTE | 2024-10-31 14:23 | EDS_ITS ---
<Statement entered by Darrick Astudillo DO - 10/31/24 21:56> Patient was seen and examined with physician optometric assistant Aleida All components of the history and physical confirmed and agreed. History of present illness and physical exam: Patient is a 44-year-old male with a past medical history of hypothyroidism secondary to thyroidectomy on Synthroid who presents to the emergency department the chief complaint of cough over the past week as well as bilateral upper extremity swelling with occasional dyspnea on exertion. Patient notes that the swelling has been there for approximately 2 weeks or so and is not getting better. Patient states that he does have some pain in his left arm associated with this and bilateral hands especially at night. He states that he did have some chest pain about 2 days ago but that has since resolved and he has had no recurrence of his symptoms. Patient denies any recent sick contacts. Review of systems: Agree with above Physical exam: Agree with above MDM Patient is a 44-year-old male who presented to the emergency department chief complaint of cough, shortness of breath and bilateral upper extremity swelling. Patient will have a workup performed here on the differential diagnose includes Melamin to upper respiratory infection secondary viral etiology, DVT in his upper extremities, pneumonia, CHF. Once workup is obtained reviewed he will be reevaluated. Patient CBC reviewed and showed no evidence leukocytosis white blood count normal at 7.5, hemoglobin stable 14.4, plate count noted be normal at 169. Patient sodium normal at 140, potassium normal 3.9, creatinine was 1.54. Patient's troponin normal at 4 and a proBNP was normal at 5.1. Patient's EKG was reviewed and independently interpreted myself showed sinus bradycardia with a rate of 56 bpm. Patient's chest x-ray reviewed by myself and by radiology showed no acute cardiopulmonary processes. Patient's bilateral upper extremity venous Dopplers showed no evidence of DVT. No evidence of superficial venous thrombosis. Discussed results with patient he would like to go home at this point time. He is advised to follow-up with his primary care physician outpatient setting and return with worsening symptoms or other concerns. Patient states that he did just recently resume his Synthroid he is advised to take this as prescribed he is agreeable this plan all question concerns answered he was discharged home in stable condition Final impression: Upper respiratory infection second viral etiology Disposition: Patient will be discharged home in stable condition Supervising attending attestation: Darrick Astudillo D.O. HPI History of Present Illness Chief Complaint: Cough Narrative Narrative: Patient presenting today with a nonproductive cough he has had over the past week. He reports that he has had intermittent wheezes and occasional mild dyspnea with exertion. He has had swelling in his bilateral hands over the past 2 weeks or so. He denies any history of CHF or orthopnea. He reports that he has had pain in his left arm and bilateral hands, especially at night. 2 days ago he did have midsternal chest pain that resolved. No current chest pain. He denies any cardiac history or history of COPD or asthma. He has had slight throat irritation but denies nasal congestion, fevers, chills, history of blood clots or recent surgery/travel/immobilization. He has a PMH of a thyroidectomy on Synthroid. PFSH PFS Medical History Hypothyroidism Neck pain Loose, teeth Arthritis Foot pain Multinodular thyroid Multiple thyroid nodules Back pain Home Medications ?Medication ?Instructions ?Recorded ?Last Taken ?Type ibuprofen 200 mg capsule 200 mg PO Q6H PRN Pain 02/09/22 02/08/22 History ibuprofen 800 mg tablet 800 mg PO Q6H PRN pain, mild 10/14/23 Unknown History levothyroxine 200 mcg capsule 225 mcg PO DAILY 10/14/23 Unknown History Allergy/AdvReac Type Severity Reaction Status Date / Time adhesive tape AdvReac Mild Rash Verified 10/31/24 14:06 Family History Brother Cancer thyroid Father Hypertension Grandmother Cancer thyroid Colon cancer Surgical History S/P knee surgery S/P total thyroidectomy History of total thyroidectomy History of colonoscopy (~2015) History of laminectomy Social History household members: significant other Smoking Status: Never smoker ROS ROS ED Constitutional Constitutional ED: Denies chills or fever(s) Cardiovascular Cardiovascular: Denies chest pain, orthopnea, palpitations or paroxysmal nocturnal dyspnea Respiratory/Chest Respiratory/Chest: Reports cough, dyspnea on exertion and wheezing; Denies orthopnea, paroxysmal nocturnal dyspnea or tachypnea Gastrointestinal Gastrointestinal: Denies abdominal pain, nausea or vomiting Musculoskeletal Musculoskeletal: Denies arthralgias or myalgias Integumentary Denies rash Neurologic Neurologic: Denies weakness EXAM Physical Exam Const Vital Signs: 10/31/24 14:05 10/31/24 14:06 10/31/24 14:27 Temperature 98.3 F Temperature Source Oral Pulse Rate 63 Respiratory Rate 18 Respiratory Effort Normal Non-Labored Normal Non-Labored Respiratory Depth Normal Respiratory Pattern Normal Normal Blood Pressure 150/103 H Blood Pressure Mean 118 Pulse Ox 98 Oxygen Delivery Method Room Air Room Air 10/31/24 16:05 Temperature 98 F Temperature Source Oral Pulse Rate 56 L Respiratory Rate 16 Respiratory Effort Respiratory Depth Respiratory Pattern Blood Pressure 138/94 H Blood Pressure Mean 108 Pulse Ox 98 Oxygen Delivery Method Room Air Positive well nourished, well developed and no apparent distress General Appearance ED: well developed HEENT Reports normocephalic and head/scalp atraumatic HEENT Narrative: Posterior pharynx clear. Mouth ED: Yes moist mucous membranes normal Eyes PERRL and EOMs intact bilaterally Neck full ROM and supple Chest Wall inspection of chest normal Resp normal respiratory effort and clear to auscultation bilaterally Cardio regular rate and regular rhythm GI soft to palpation, non-tender, non-distended and no masses Back/Spine normal ROM and normal to inspection Extremity normal to inspection and full ROM Extremity Narrative: Bilateral radial and DP pulses 2+. Moderate edema to the bilateral hands. No lower extremity edema. Neuro oriented x3, CN's II-XII intact bilaterally, moves all extremities, no focal motor deficits and no sensory deficits noted Sensorium / Orientation: awake and alert Psych mental status grossly normal and thought process normal Skin no rashes or lesions noted and no wounds MDM MDM MDM Narrative Medical decision making narrative: Patient presenting today with a nonproductive cough has had over the past week and swelling to his hands that he has had for a little over 2 weeks. He denies any history of CHF or orthopnea. No swelling in his bilateral lower extremities. Cardiac labs will be obtained as well as a chest x-ray. He is PERC negative, low suspicion for PE. His CBC is unremarkable, his creatinine is 1.54, BNP is 5.1 and troponin is 4. Chest x-ray shows no infiltrate, pleural effusion, or other cardiopulmonary abnormality. His cough is likely viral in nature. Bilateral venous duplex ultrasounds of the upper extremities obtained and are negative for DVT. At this time I am unable to explain his hand edema. I recommended that he follow-up with his PCP. Blood pressure was elevated here initially but did go down, I did recommend that he keep an eye on his blood pressure and follow-up with his PCP on this as well as his creatinine given it was slightly elevated compared to previous labs. Return instructions discussed and patient discharged home in stable condition. Lab Data Attestation: I reviewed the patient's lab results. Labs: Laboratory Results - last 24 hr 10/31/24 14:37 WBC 7.5 RBC 4.62 Hgb 14.4 Hct 41.6 MCV 90.0 MCH 31.2 MCHC 34.6 RDW Std Deviation 44.2 H RDW Coeff of Fritz 13.5 Plt Count 169 MPV 10.4 Immature Gran % (Auto) 0.400 Neut % (Auto) 62.3 Lymph % (Auto) 21.3 [place] % (Auto) 10.5 H Eos % (Auto) 5.0 Baso % (Auto) 0.5 Absolute Neuts (auto) 4.6 Absolute Lymphs (auto) 1.59 Nucleated RBC % 0 Sodium 140 Potassium 3.9 Chloride 106 Carbon Dioxide 28.0 Anion Gap 5 BUN 19 H Creatinine 1.54 H Estim Creat Clear Calc 73.85 Est GFR (MDRD) Af Amer 63 Est GFR (MDRD) Non-Af 52 L BUN/Creatinine Ratio 12.3 Glucose 105 Calcium 8.9 Troponin I High Sens 4 B-Natriuretic Peptide 5.1 Radiography X-Ray: Read by ED Physician Diagnostic Testing: Clinical Impression(s) from Imaging Studies Chest X-Ray 10/31/24 14:21 IMPRESSION: Normal x-ray examination of the chest. Electronically Signed: Trent Shelton MD at 15:01 EST , EKG Initial EKG: Comments: 56 bpm, sinus bradycardia, no ST elevation, interpreted by attending ED physician Discharge Plan Triage Chief Complaint: Cough Other Complaint: Edema ED Midlevel Provider: Cecy Vidal ED Provider: Darrick Astudillo Dx/Rx/DC Orders Clinical Impression: Cough, Hand edema, Elevated blood pressure reading Instructions: Acute Bronchitis, ED Peripheral Edema, Bilateral Prescriptions: No Action ibuprofen 200 mg Capsule 200 mg PO Q6H PRN (Reason: Pain) ibuprofen 800 mg tablet 800 mg PO Q6H PRN (Reason: pain, mild) Patient Comments: TAKE 1 TABLET BY MOUTH EVERY 6 TO 8 HOURS NEEDED levothyroxine 200 mcg capsule 225 mcg PO DAILY Primary Care Provider: JUANI ALBA Referrals: JUANI ALBA MD [Primary Care Provider] - 5-7 Days Activity Restrictions/Additional Instructions: Follow-up with your PCP and return for any other concerns. Please keep an eye on your blood pressure and follow-up with your PCP as it was elevated here. Print Language: Sami Disposition Disposition: Home, Self Care Discharge Date/Time: 10/31/24 16:33
[2024-10-31 14:43] LABS: Absolute Lymphocyte Count 1.59 X10^3/uL (0.83-4.51); Absolute Neutrophil Count 4.6 X10^3/uL (2.0-7.7); Basophil# 0.04 X10^3/uL; Basophil% 0.5 % (0-1); Eosinophil# 0.37 X10^3/uL; Hematocrit 41.6 % (40-54); Hemoglobin 14.4 g/dL (13.0-16.5); Lymphocyte # 1.59 X10^3/ul (0.83-4.51); Lymphocyte % 21.3 % (19-41); Mean Corp Hgb Conc 34.6 g/dL (32-36); Mean Corpuscular Hgb 31.2 pg (27.0-32.0); Mean Platelet Vol. 10.4 fl (6.2-12.0); Monocyte# 0.78 X10^3/uL; Monocyte% 10.5 % (0-10); NRBC Flagged by Analyzer 0 % (0-5); Neutrophil # 4.64 X10^3/uL (2.7-7.7); Neutrophil % 62.3 % (47-70); Platelet Count 169 K/mm3 (150-450); RBC Distribution Width CV 13.5 % (11.6-14.6); RBC Distribution Width SD 44.2 fl (35.1-43.9); Red Blood Count 4.62 M/mm3 (4.6-6.2); White Blood Count 7.5 K/mm3 (4.4-11.0)
[2024-10-31 15:06] LABS: Anion Gap 5 (5-15); BUN 19 mg/dL (7-18); BUN/Creat Ratio 12.3 RATIO (10-20); Calcium,Total 8.9 mg/dL (8.5-10.1); Chloride 106 mmol/L (98-107); Creatinine, Serum 1.54 mg/dL (0.70-1.30); EST Glomerular Filtration Rate 52 mL/min (>60); Est Glom Filt Rate - Afr Amer 63 mL/min (>60); Estimated Creatinine Clearance 73.85 ml/min; Glucose 105 mg/dL (74-106); Potassium 3.9 mmol/L (3.5-5.1); Sodium Level 140 mmol/L (136-145); Troponin-I HS 4 pg/mL (3.0-78.0)
--- NOTE | 2024-10-31 15:32 | VDUE_ITS ---
Reason For Study: BUE Edema / Pain Right Proximal Left Proximal Right jugular vein is spontaneous, widely Left jugular vein is spontaneous, widely patent, phasic, with no intraluminal patent, phasic, with no intraluminal echogenicity noted. echogenicity noted. Right subclavian vein is spontaneous, widely Left subclavian vein is spontaneous, widely patent, phasic, with no intraluminal patent, phasic, with no intraluminal echogenicity noted. echogenicity noted. Right Lower Arm Left Arm Right radial vein is compressible. Left axillary vein is spontaneous, patent, Right ulnar vein is compressible. phasic, competent, compressible and Right Arm demonstrates augmentation. Right axillary vein is spontaneous, patent, Left brachial vein is compressible. phasic, competent, compressible and Left cephalic vein is compressible. demonstrates augmentation. Left basilic vein is compressible. Right brachial vein is compressible. Left Lower Arm Right cephalic vein is compressible. Left radial vein is compressible. Right basilic vein is compressible. Left ulnar vein is compressible. Patient Safety Bilateral Upper Extremity Venous Doppler with B-Mode, Pulsed Wave andColor Doppler. Study performed in [facility] ED Technically Difficult study Preliminary report given to Dr. Astudillo. VL/Venous Duplex US - Tino Extrem Interpretation Summary Deep veins of the bilateral upper extremities are patent and compressible segme ntally. There is no evidence of deep vein thrombosis. Superficial veins of the bilateral upper extremities are patent and compressibl e segmentally. There is no evidence of superficial vein thrombosis. Ordering Physician: Cecy Vidal Referring Physician: Darrick Astudillo Performed By: Azar Alicia, RVT ???
[2024-10-31 16:05] VITALS: BP 138/94; PULSE 56; RESP 16; TEMP 36.6; O2SAT 98
[2024-10-31 16:15] LABS: BNP,B-Type NATRIURETIC PEPTIDE 5.1 pg/mL (0-100)
== END 2024-10-31 16:33 | disposition home or self-care (01) ==
PROVIDERS: Physician Assistant; Emergency Provider Emergency Medicine; PCP Internal Medicine; Referring Provider Emergency Medicine; Visit Provider Emergency Medicine
DX: R05.9 Cough, unspecified (principal); J06.9 Acute upper respiratory infection, unspecified; E89.0 Postprocedural hypothyroidism; R03.0 Elevated blood-pressure reading, without diagnosis of hypertension; R60.0 Localized edema; Z79.890 Hormone replacement therapy; R06.02 Shortness of breath
CPT/HCPCS: 71046; 80048; 83880; 84484; 85025; 93005; 93970; 99284; A4216